=== PATIENT | female | born 1990 | race Caucasian/White ===

== ENCOUNTER 2021-12-28 17:34 | Emergency (ER) | payer SELFPAY ==
[2021-12-28] MEDS ORDERED: NA CHLORIDE 0.9% 1,000 ML ONE (20:56)
[2021-12-28] MEDS ORDERED: ACETAMINOPHEN 500 MG TAB ONE (20:56)
[2021-12-28 21:08] LABS: Urine Blood Trace-lysed (Negative); Urine Glucose Negative (Negative); Urine Protein Negative (Negative); Urine pH 6.5 (5.0-7.0)
[2021-12-28 21:10] LABS: Absolute Lymphocytes (CBC) 0.6 K/uL (0.7-4.9); Hematocrit 38.6 % (36.0-45.0); Lymphocytes % 7.7 % (15.3-44.8); MCV 89.5 fL (80-100); MPV 7.4 fL (7.6-11.3); RBC Red Blood Cell Count 4.31 M/uL (3.86-4.86)
[2021-12-28 21:20] LABS: Protime INR 1.21
[2021-12-28 21:38] LABS: ALT/SGPT 19 U/L (12-78); AST/SGOT 12 U/L (15-37); Albumin 3.7 g/dL (3.4-5.0); Alkaline Phosphatase 77 U/L (45-117); BUN Blood Urea Nitrogen 6 mg/dL (7-18); Bicarbonate 22 mmol/L (21-32); Bilirubin Direct 0.1 mg/dL (0-0.2); Bilirubin Total 0.4 mg/dL (0.2-1.0); Glomerular Filtration Rate 104 ml/min (=/>90); Glucose Level 100 mg/dL (74-106); Magnesium 2.2 mg/dL (1.8-2.4); NT PRO-BNP 278 pg/mL (<125); Potassium 3.8 mmol/L (3.5-5.1); Protein, Total 7.9 g/dL (6.4-8.2); Sodium Level 136 mmol/L (136-145)
[2021-12-28 21:46] LABS: Troponin High Sensitivity < 3.0 pg/mL (<58.9)
--- NOTE | 2021-12-28 21:52 | RAD REPORT ---
EXAM DESCRIPTION: RAD - Chest Single View - 12/28/2021 9:46 pm CLINICAL HISTORY: COUGH Chest pain. COMPARISON: CHEST SINGLE VIEW dated 10/28/2014; ABDOMEN 1 VIEW KUB dated 05/12/2008 FINDINGS: Portable technique limits examination quality. The lungs are grossly clear. The heart is normal in size. No displaced fractures. IMPRESSION: No acute intrathoracic process suspected.
--- NOTE | 2021-12-29 00:22 | ER ---
Nurse's Notes [facility] Name: Vita Edwards Age: 31 yrs Sex: Female : 1990 Arrival Date: 12/28/2021 Time: 17:37 Bed 11 Private MD: Diagnosis: SARS-associated coronavirus as the cause of diseases classified elsewhere Presentation: 12/28 17:55 Chief complaint: Headache, sinus congestion, cough, body aches, nausea, and chills upon hb waking today. Coronavirus screen: Client presents with at least one sign or symptom that may indicate coronavirus-19. Standard/surgical mask placed on the client. Provider contacted for isolation considerations. Ebola Screen: No symptoms or risks identified at this time. Risk Assessment: Do you want to hurt yourself or someone else? Patient reports no desire to harm self or others. Onset of symptoms was December 28, 2021. 17:55 Method Of Arrival: Ambulatory 17:55 Acuity: CHINTAN 4 hb 19:16 Initial Sepsis Screen: Does the patient meet any 2 criteria? No. Patient's initial hb sepsis screen is negative. Does the patient have a suspected source of infection? No. Patient's initial sepsis screen is negative. Triage Assessment: 17:56 Headache History: Denies prior headaches. General: Appears in no apparent distress. hb Behavior is calm, cooperative. Pain: Pain currently is 10 out of 10 on a pain scale. Neuro: Level of Consciousness is awake, alert, obeys commands, Oriented to person, place, time, situation. Cardiovascular: Patient's skin is warm and dry. Respiratory: Respiratory effort is even, unlabored, Respiratory pattern is regular, symmetrical. DATA TYPIST: 12/29 00:45 LMP N/A - bb Historical: - Allergies: 12/28 17:58 No Known Allergies; hb - Home Meds: 17:58 oral bc [Active]; hb - PMHx: 17:58 None; hb - PSHx: 17:58 None; hb - Immunization history:: Client reports having NOT received the Covid vaccine. - Social history:: Smoking status: Patient denies any tobacco usage or history of. Screenin:16 Abuse screen: Denies threats or abuse. Denies injuries from another. Nutritional hb screening: No deficits noted. Tuberculosis screening: No symptoms or risk factors identified. Fall Risk None identified. Assessment: 17:57 General: See triage assessment.. hb 19:15 Reassessment: Patient appears in no apparent distress at this time. Patient and/or hb family updated on plan of care and expected duration. Pain level reassessed. Patient is alert, oriented x 3, equal unlabored respirations, skin warm/dry/pink. 20:00 Reassessment: Patient appears in no apparent distress at this time. Patient and/or hb family updated on plan of care and expected duration. Pain level reassessed. Patient is alert, oriented x 3, equal unlabored respirations, skin warm/dry/pink. 21:30 Reassessment: Patient appears in no apparent distress at this time. Patient and/or hb family updated on plan of care and expected duration. Pain level reassessed. Patient is alert, oriented x 3, equal unlabored respirations, skin warm/dry/pink. 22:38 Reassessment: Patient appears in no apparent distress at this time. Patient and/or hb family updated on plan of care and expected duration. Pain level reassessed. Patient is alert, oriented x 3, equal unlabored respirations, skin warm/dry/pink. 23:32 Reassessment: Patient appears in no apparent distress at this time. Patient and/or hb family updated on plan of care and expected duration. Pain level reassessed. Patient is alert, oriented x 3, equal unlabored respirations, skin warm/dry/pink. 12/29 00:43 Reassessment: Patient is alert, oriented x 3, equal unlabored respirations, skin bb warm/dry/pink. pt verbalized understanding of and agrees to plan of care discharge instructions given pt ambulated with steady gait to exit. Vital Signs: 12/28 17:55 BP 128 / 80; Pulse 115; Resp 18; Temp 98.2; Pulse Ox 97% on R/A; Weight 108.86 kg; hb Height 6 ft. 1 in. (185.42 cm); Pain 10/10; 21:31 BP 126 / 82; Pulse 124; Resp 20; Pulse Ox 100% on R/A; hb 22:38 BP 124 / 79; Pulse 109; Resp 18; Pulse Ox 98% on R/A; hb 23:46 BP 98 / 57; Pulse 97; Resp 22; Temp 98(TE); Pulse Ox 99% on R/A; Pain 2/10; hb 12/29 00:44 BP 101 / 59; Pulse 98; Resp 20 S; Temp 98.6(O); Pulse Ox 100% on R/A; bb 12/28 17:55 Body Mass Index 31.66 (108.86 kg, 185.42 cm) hb ED Course: 12/28 17:37 Patient arrived in ED. as 17:58 Triage completed. hb 17:58 Arm band placed on. hb 19:12 Asif Piedra MD is Attending Physician. [facility] 19:15 Dee Nathan, RN is Primary Nurse. hb 19:16 Patient has correct armband on for positive identification. hb 20:24 Notified ED physician of a critical lab result(s). Covid positive Dr Piedra notified. bb 21:02 Inserted saline lock: 20 gauge in right wrist, using aseptic technique. Blood collected.hb 21:43 Notified ED physician of a critical lab result(s). D-Dimer 794 Dr Piedra notified. bb 21:48 XRAY Chest (1 view) In Process Unspecified. EDMS 22:26 CT Chest For PE Angio In Process Unspecified. EDAR 12/29 00:44 No provider procedures requiring assistance completed. IV discontinued, intact, bb bleeding controlled, No redness/swelling at site. Pressure dressing applied. Administered Medications: 12/28 21:02 Drug: Tylenol 1000 mg Route: PO; 12/29 00:45 Follow up: Response: No adverse reaction bb 12/28 21:03 Drug: NS 0.9% 1000 ml Route: IV; Rate: 1000 ml; Site: right wrist; Medication: 12/29 00:44 VIS not applicable for this client. bb Outcome: 00:21 Discharge ordered by . Main 00:44 Discharged to home ambulatory. bb 00:44 Condition: stable 00:44 Discharge instructions given to patient, Instructed on discharge instructions, follow up and referral plans. medication usage, Demonstrated understanding of instructions, follow-up care, medications, Prescriptions given X 4. 00:45 Patient left the ED. bb Signatures: Dispatcher [employer] EDAR Lorenza Alarcon Brenda, RN RN bb Dee Nathan, RN RN Asif Piedra MD MD [facility]
--- NOTE | 2021-12-29 00:22 | EDPHYS ---
Physician Documentation [facility] Name: Vita Edwards Age: 31 yrs Sex: Female : 1990 Arrival Date: 12/28/2021 Time: 17:37 Bed 11 Private MD: ED Physician Asif Piedra HPI: 12/28 20:30 This 31 yrs old Female presents to ER via Ambulatory with complaints of Headache, Sinus mh7 Pain. 20:30 The patient or guardian reports cough, that is intermittent, described as moderate, mh7 with no sputum, flu symptoms, myalgias, congestion. 20:30 Onset: The symptoms/episode began/occurred this morning. mh7 20:30 Severity of symptoms: At their worst the symptoms were moderate, earlier today, [facility] the symptoms have improved, moderately. Modifying factors: The symptoms are alleviated by nothing, the symptoms are aggravated by nothing. Associated signs and symptoms: Pertinent positives: chest pain, with cough, rhinorrhea, sore throat, sinus pain, Pertinent negatives: diarrhea, ear ache, fever, vomiting. [employer]ER: 12/29 00:45 LMP N/A - bb Historical: - Allergies: 12/28 17:58 No Known Allergies; hb - Home Meds: 17:58 oral bc [Active]; hb - PMHx: 17:58 None; hb - PSHx: 17:58 None; hb - Immunization history:: Client reports having NOT received the Covid vaccine. - Social history:: Smoking status: Patient denies any tobacco usage or history of. ROS: 20:30 Constitutional: Negative for fever, chills, and weight loss, Eyes: Negative for injury, mh7 pain, redness, and discharge, Neck: Negative for injury, pain, and swelling, Cardiovascular: Negative for chest pain, palpitations, and edema, Abdomen/GI: Negative for abdominal pain, nausea, vomiting, diarrhea, and constipation, Back: Negative for injury and pain, : Negative for injury, bleeding, discharge, and swelling, MS/Extremity: Negative for injury and deformity, Skin: Negative for injury, rash, and discoloration, Neuro: Negative for headache, weakness, numbness, tingling, and seizure, Psych: Negative for depression, anxiety, suicide ideation, homicidal ideation, and hallucinations, Allergy/Immunology: Negative for hives, rash, and allergies, Endocrine: Negative for neck swelling, polydipsia, polyuria, polyphagia, and marked weight changes, Hematologic/Lymphatic: Negative for swollen nodes, abnormal bleeding, and unusual bruising. Exam: 20:30 Constitutional: This is a well developed, well nourished patient who is awake, alert, mh7 and in no acute distress. 20:30 Eyes: Pupils equal round and reactive to light, extra-ocular motions intact. Lids and lashes normal. Conjunctiva and sclera are non-icteric and not injected. Cornea within normal limits. Periorbital areas with no swelling, redness, or edema. ENT: Nares patent. No nasal discharge, no septal abnormalities noted. Tympanic membranes are normal and external auditory canals are clear. Oropharynx with no redness, swelling, or masses, exudates, or evidence of obstruction, uvula midline. Mucous membranes moist. Neck: Trachea midline, no thyromegaly or masses palpated, and no cervical lymphadenopathy. Supple, full range of motion without nuchal rigidity, or vertebral point tenderness. No Meningismus. Chest/axilla: Normal chest wall appearance and motion. Nontender with no deformity. No lesions are appreciated. Cardiovascular: Regular rate and rhythm with a normal S1 and S2. No gallops, murmurs, or rubs. Normal PMI, no JVD. No pulse deficits. Respiratory: Lungs have equal breath sounds bilaterally, clear to auscultation and percussion. No rales, rhonchi or wheezes noted. No increased work of breathing, no retractions or nasal flaring. Abdomen/GI: Soft, non-tender, with normal bowel sounds. No distension or tympany. No guarding or rebound. No evidence of tenderness throughout. Back: No spinal tenderness. No costovertebral tenderness. Full range of motion. Skin: Warm, dry with normal turgor. Normal color with no rashes, no lesions, and no evidence of cellulitis. MS/ Extremity: Pulses equal, no cyanosis. Neurovascular intact. Full, normal range of motion. Neuro: Awake and alert, GCS 15, oriented to person, place, time, and situation. Cranial nerves II-XII grossly intact. Motor strength 5/5 in all extremities. Sensory grossly intact. Cerebellar exam normal. Normal gait. Psych: Awake, alert, with orientation to person, place and time. Behavior, mood, and affect are within normal limits. 20:30 Head/face: Sinus tenderness, that is mild, is located over the right maxillary sinus and left maxillary sinus. Vital Signs: 17:55 BP 128 / 80; Pulse 115; Resp 18; Temp 98.2; Pulse Ox 97% on R/A; Weight 108.86 kg; hb Height 6 ft. 1 in. (185.42 cm); Pain 10/10; 21:31 BP 126 / 82; Pulse 124; Resp 20; Pulse Ox 100% on R/A; hb 22:38 BP 124 / 79; Pulse 109; Resp 18; Pulse Ox 98% on R/A; hb 23:46 BP 98 / 57; Pulse 97; Resp 22; Temp 98(TE); Pulse Ox 99% on R/A; Pain 2/10; hb 12/29 00:44 BP 101 / 59; Pulse 98; Resp 20 S; Temp 98.6(O); Pulse Ox 100% on R/A; bb 12/28 17:55 Body Mass Index 31.66 (108.86 kg, 185.42 cm) hb MDM: 00:19 Differential Diagnosis: Obstructed Airway Bronchitis Influenza Upper Respiratory mh7 Infection Sinusitis Pharyngitis Asthma Exacerbation Viral Syndrome Pneumonia. Data reviewed: vital signs, nurses notes, lab test result(s), CBC, electrolytes, Flu: negative COVID positive. Data interpreted: Pulse oximetry: on room air is 99 %. Interpretation: normal. Counseling: I had a detailed discussion with the patient and/or guardian regarding: the historical points, exam findings, and any diagnostic results supporting the discharge/admit diagnosis, lab results, radiology results, the need for outpatient follow up, to return to the emergency department if symptoms worsen or persist or if there are any questions or concerns that arise at home. Response to treatment: the patient's symptoms have resolved after treatment, the patient's blood pressure is in an acceptable range, mental status has returned to baseline, the patient no longer shows bradycardia, the patient is not short of breath, the patient is not tachycardic, the patient's pain is gone, the patient's temperature has normalized. 00:21 Patient medically screened. mh7 12/28 18:05 Order name: Flu; Complete Time: 20:32 ss 12/28 18:05 Order name: COVID-19 SARS RT PCR (Document "Date of Onset" if Symptomatic); Complete ss Time: 20:32 12/28 20:43 Order name: Basic Metabolic Panel; Complete Time: 21:56 [facility] 12/28 20:43 Order name: CBC with Diff; Complete Time: 21:44 [facility] 12/28 20:43 Order name: D-Dimer; Complete Time: 21:56 [facility] 12/28 20:43 Order name: LFT's; Complete Time: 21:56 [facility] 12/28 20:43 Order name: Magnesium; Complete Time: 21:56 [facility] 12/28 20:43 Order name: NT PRO-BNP; Complete Time: 21:56 [facility] 12/28 20:43 Order name: PT-INR; Complete Time: 21:56 [facility] 12/28 20:43 Order name: Troponin HS; Complete Time: 21:56 [facility] 12/28 21:08 Order name: Urine Dipstick-Ancillary; Complete Time: 21:44 [facility] 12/28 21:22 Order name: Urine --Ancillary (enter results); Complete Time: 21:57 12/28 20:43 Order name: XRAY Chest (1 view); Complete Time: 21:56 [facility] 12/28 20:43 Order name: EKG; Complete Time: 20:43 [facility] 12/28 20:43 Order name: Cardiac monitoring; Complete Time: 21:31 [facility] 12/28 20:43 Order name: EKG - Nurse/Tech; Complete Time: 21:31 [facility] 12/28 20:43 Order name: IV Saline Lock; Complete Time: 21:08 [facility] 12/28 20:43 Order name: Labs collected and sent; Complete Time: 21:08 [facility] 12/28 20:43 Order name: O2 Per Protocol; Complete Time: 21:08 [facility] 12/28 20:43 Order name: O2 Sat Monitoring; Complete Time: 21:08 [facility] 12/28 20:43 Order name: Urine Dipstick-Ancillary (obtain specimen); Complete Time: 21:08 [facility] 12/28 20:43 Order name: Urine Test (obtain specimen); Complete Time: 21:08 [facility] 12/28 21:57 Order name: CT Chest For PE Angio 7 Administered Medications: 12/28 21:02 Drug: Tylenol 1000 mg Route: PO; hb 12/29 00:45 Follow up: Response: No adverse reaction 12/28 21:03 Drug: NS 0.9% 1000 ml Route: IV; Rate: 1000 ml; Site: right wrist; hb Disposition Summary: 12/29/21 00:21 Discharge Ordered Location[facility] Problem: [facility] Symptoms: have improved [facility] Condition: Stable [facility] Diagnosis - SARS-associated coronavirus as the cause of diseases classified elsewhere [facility] - With: Private Physician - When: 1 - 2 days - Reason: Worsening of condition, Recheck today's complaints, Continuance of care, Re-evaluation by your physician Discharge Instructions: - Discharge Summary Sheet - COVID-19 [facility] - Things to Know about the COVID-19 Pandemic - [place] [address] - 10 Things You Can Do to Manage Your COVID-19 Symptoms at Home - [place] [address] - COVID-19: Quarantine vs. Isolation - [place] [address] - Prevent the Spread of COVID-19 if You Are Sick - [place] [address] Forms: - Work release form - Medication Reconciliation Form [facility] - Thank You Letter [facility] - Antibiotic Education [facility] - Prescription Opioid Use [facility] Prescriptions: - aspirin 81 mg Oral tablet,delayed release (DR/EC) - take 1 tablet by ORAL route once daily; 30 tablet; Refills: 0, Product [facility] Selection Permitted - ondansetron 4 mg Oral tablet,disintegrating - place 1 tablet by TRANSLINGUAL route every 8 hours As needed; 10 tablet; [facility] Refills: 0, Product Selection Permitted - Tessalon Perles 100 mg Oral Capsule - take 1 capsule by ORAL route every 8 hours As needed; 15 capsule; Refills: 0, [facility] Product Selection Permitted - Zithromax Z-Jose 250 mg Oral Tablet - take 1 tablet by ORAL route as directed for 5 days Day 1 - take two (2) tablets [facility] one time. Day 2, 3, 4 , 5 take one (1) tablet once daily.; 6 tablet; Refills: 0, Product Selection Permitted Signatures: Dispatcher [employer] Dee Dumont RN RN Asif Piedra MD MD [facility] Lesly Bautista RN
[2021-12-29 01:18] VITALS: BP 101/59; TEMP 98.6; O2SAT 100
--- NOTE | 2021-12-29 12:41 | EKG ---
Test Date: 2021-12-28 Test Time: 21:18:50 Gauger Chief Delivery: HB MEASUREMENT RESULTS: Intervals: Rate: 0 [place]: QRSD: 0 QT: 0 QTc: 0 [place]: P: [place]: QRS: 0 T: 0 INTERPRETIVE STATEMENTS: No QRS complexes found, no ECG analysis possible No previous ECG available for comparison Electronically Signed On 12-29-21 12:39:38 CDT by Ovidio Lambert
--- NOTE | 2021-12-29 12:41 | EKG ---
Test Date: 2021-12-28 Test Time: 21:21:52 Construction Materials Tester: HB MEASUREMENT RESULTS: Intervals: Rate: 100 VA: 152 QRSD: 78 QT: 340 QTc: 438 [place]: P: 66 VA: 152 QRS: 55 T: 49 INTERPRETIVE STATEMENTS: Normal sinus rhythm Normal ECG Compared to ECG 12/28/2021 21:18:50 No significant changes Electronically Signed On 12-29-21 12:39:35 CDT by Ovidio Lambert
--- NOTE | 2021-12-29 15:13 | RAD REPORT ---
EXAM DESCRIPTION: CT - Chest For Pe Angio - 12/29/2021 6:41 am CLINICAL HISTORY: 31-year-old female with chest pain. COMPARISON: None. TECHNIQUE: CT angiography of the pulmonary arteries was performed following intravenous administrati on of contrast. Coronal and bilateral oblique maximum intensity projections (MIPS) were created. This exam was performed according to our departmental dose optimization program which includes use of aut omated exposure control, adjustment of the mA and/or kV according to patient size and/or use of itera tive reconstruction technique. FINDINGS: Chest: Evaluation through the lungs reveals no focal opacity, pleural effusion or pneumothorax. There is min imal dependent basilar atelectasis and scarring. The tracheobronchial airways are patent. No signific ant mediastinal or axillary lymphadenopathy by CT measurement criteria. Limited evaluation of the upper abdomen shows no acute intra-abdominal abnormalities. The osseous structures are within normal limits. CT angiography: Nondiagnostic pulmonary embolism examination secondary to transient interruption of c ontrast and nondiagnostic contrast through the pulmonary arteries. No large embolism is identified within the main, LEFT and RIGHT main pulmonary arteries. Distal subse gmental pulmonary embolism cannot be excluded secondary to nondiagnostic contrast opacification. IMPRESSION: 1. Nondiagnostic pulmonary embolism examination secondary to nondiagnostic contrast th rough the pulmonary arteries secondary to transient interruption of contrast. No large embolism is id entified within the main, LEFT and RIGHT main pulmonary arteries. Distal subsegmental pulmonary embol ism cannot be excluded secondary to nondiagnostic contrast opacification. 2. The lungs are clear without focal opacity, pleural effusion or pneumothorax. 3. No specific findings are noted to suggest etiology of the patient's chest pain and shortness of breath. Electronically signed by: Tiffany Kaur MD 12/28/2021 10:45 PM CDT Due to temporary technical issues with the PACS/Fluency reporting system, reports are being signed by the in house radiologists without review as a courtesy to insure prompt reporting. The interpreting radiologist is fully responsible for the content of the report.
== END 2021-12-29 00:45 | disposition home or self-care (01) ==
LOC: ER 17:34
DX: U07.1 COVID-19 (principal)
CPT/HCPCS: 36415; 71045; 71275; 80048; 80076; 81003; 81025; 83735; 83880; 84484; 85025; 85379; 85610; 87804; 93005; 99284; J7030; Q9967; U0003

== ENCOUNTER 2022-09-03 12:55 | Emergency (ER) | payer SELFPAY ==
--- OUTSIDE RECORDS SUMMARY | 2022-09-03 13:28 | XMS REPORT | Continuity of Care Document ---
:1990 [facility] t Address [address] [facility]. [address] [place] [address] Care Team Providers Name Role Phone Mariela Heriberto Tijerina Primary Care Physician NISHA CORTEZ Attending Clinician Unavailable NISHA CORTEZ Attending Clinician Unavailable Isis Armendariz MD Attending Clinician ISIS ARMENDARIZ Attending Clinician Unavailable Doctor Unassigned, [place] Attending Clinician Unavailable Payers Payer Name Policy Type Policy Number Effective Date Expiration Date S ource Problems Condition Condition Condition Status Onset Resolution Last Treating Co mments Source Name Details Category Date Date Treatment Clinician Date Mild Mild Disease Active 2021-06 Univers anxiety anxiety 0-07 ity of 00:00: [address] oral oral Disease Active 2021-06 Univers contrace contrace 0-07 ity of pill frieda pill frieda 00:00: [address] BMI BMI Disease Active 2021-06 Univers 32.0-32.9, 32.0-32.9, 0-07 it y of adult adult 00:00: [address] Breast Breast Disease Active Univers pain pain 3-08 ity of 00:00: [address] Allergies, Adverse Reactions, Alerts Allergy Allergy Status Severity Reaction(s) Onset Inactive Treating Comm ents Source Name Type Date Date Clinician NO KNOWN Drug Active Univers ALLERGIE Class ity of S [facility] Social History Social Habit Start Date Stop Date Quantity Comments Source History SDOH University o f Alcohol Std [place] [facility] History SDOH University o f Alcohol Binge [place] [facility] History SDOH University o f Alcohol Comment [place] [facility] Exposure to 2022-03-102022-03-20 Not sure [facility] SARS-CoV-2 00:00:00 09:07:00 [facility] (event) [place] Alcohol intake 2022-03-20 2022-03-20 Lifetime University of 00:00:00 00:00:00 non-drinker [facility] (finding) [place] Tobacco use and 2020-06-19 2020-06-19 Smokeless tobacco Un iversity of exposure 00:00:00 00:00:00 non-user [facility] History SDOH 2020-06-19 2020-06-19 1 University o f Alcohol Frequency 00:00:00 00:00:00 [facility] Sex Ass[birth year] At [birth year] Universit y of 00:00:00 00:00:00 [facility] Smoking Status Start Date Stop Date Source Unknown if ever smoked [facility] Never smoked tobacco [facility] Medications Ordered Filled Start Stop Current Ordering Indication Dosage Frequency Signature Comments Components Source Medication Medication Date Date Medication? Clinician (SIG) Name Name norgestimat 2021-06 Yes [id number] 1{tbl} Take 1 Univers e-ethinyl 0-07 tablet by ity o f estradio[place] 00 the Medical 0.25-35 morning. Branch mg-mcg per tablet buPROPion 2021-06 Yes [id number] 100mg Take 1 U nivers SR 0-07 tablet by ity of (WELLBUTRIN [place] 100 mg 00 the Medical SR tablet morning Branch and 1 tablet in the evening. norgestimat 2021-06 Yes [id number] 1{tbl} Take 1 Univers e-ethinyl 0-07 tablet by [place] the Medical 0.25-35 morning. Branch mg-mcg per tablet buPROPion 2021-06 Yes [id number] 100mg Take 1 U nivers SR 0-07 tablet by ity of (WELLBUTRIN [place] 100 mg 00 the Medical SR tablet morning Branch and 1 tablet in the evening. norgestimat 2021-06 Yes [id number] 1{tbl} Take 1 Univers e-ethinyl 0-07 tablet by it[place] o [place] the Medical 0.25-35 morning. Branch mg-mcg per tablet buPROPion 2021-06 Yes [id number] 100mg Take 1 U nivers SR 0-07 tablet by ity of (WELLBUTRIN [place] 100 mg 00 the Medical SR tablet morning Branch and 1 tablet in the evening. norgestimat 2020-06 Yes [id number] 1{tbl} Take 1 Univers e-ethinyl 0-21 tablet by ity o f estradioL 00:00: mouth [place] (FEMYNOR) 00 daily. Medical 0.25-35 Branch mg-mcg per tablet norgestimat 2020-06 Yes [id number] 1{tbl} Take 1 Univers e-ethinyl 0-21 tablet by ity o f estradioL 00:00: mouth [place] (FEMYNOR) 00 daily. Medical 0.25-35 Branch mg-mcg per tablet norgestimat 2020-06- No [id number] 1{tbl} Take 1 Univers e-ethinyl 0-21 10-07 tablet by ity of estradioL 00:00: 00:00 mouth [place] (FEMYNOR) 00 :00 daily. Medical 0.25-35 Branch mg-mcg per tablet norgestimat 2020-06- No [id number] 1{tbl} Take 1 Univers e-ethinyl 0-21 10-07 tablet by ity of estradioL 00:00: 00:00 mouth [place] (FEMYNOR) 00 :00 daily. Medical 0.25-35 Branch mg-mcg per tablet norgestimat 2020- No [id number] 1{tbl} Take 1 Univers e-ethinyl 4-11 10-21 tablet by ity of estradioL 00:00: 00:00 mouth [place] (FEMYNOR) 00 :00 daily. Medical 0.25-35 Branch mg-mcg per tablet erythromyci Yes [id number] Apply to Univers n 2 % gel 3-04 area(s) ity of 00:00: daily. [place] 00 Medical Branch erythromyci Yes [id number] Apply to Univers n 2 % gel 3-04 area(s) ity of 00:00: daily. [place] [facility] erythromyci Yes [id number] Apply to Univers n 2 % gel 3-04 area(s) ity of 00:00: daily. [place] [facility] erythromyci Yes [id number] Apply to Univers n 2 % gel 3-04 area(s) ity of 00:00: daily. [place] [facility] erythromyci Yes [id number] Apply to Univers n 2 % gel 3-04 area(s) ity of 00:00: daily. [address] Vital Signs Vital Name Observation Time Observation Value Comments Source Systolic blood 2022-03-20 14:17:00 132 mm[Hg] Univer sity of pressure [facility] Diastolic blood 2022-03-20 14:17:00 83 mm[Hg] Unive rsity [facility] Heart rate 2022-03-20 14:17:00 79 /min [facility] Respiratory rate 2022-03-20 14:17:00 18 /min [facility] Body height 2022-03-20 14:17:00 182.9 cm [facility] Body weight 2022-03-20 14:17:00 109.226 kg [facility] BMI 2022-03-20 14:17:00 32.66 kg/m2 [facility] Oxygen saturation in 2022-03-20 14:17:00 97 /min [facility] Arterial blood by [facility] Pulse oximetry Branch Procedures Procedure Date / Time Performed Performing Clinician [facility] e ASSIGNMENT OF BENEFITS 2020-06-19 20:47:34 Doctor Unassigned, No [facility] Name [facility] Encounters Start End Encounter Admission Attending Care Care Encounter Source Date/Time Date/Time Type Type Clinicians Facility Department ID 2022-06-22 2022-06-22 Outpatient R NISHA CORTEZ [facility] B [id number] Univers 15:30:00 15:30:[address] [facility] 2022-04-11 2022-04-11 RefGWEN Lozano [id number] Univers 00:00:00 00:00:00 Nisha SÁNCHEZ [id number] it y of W[place]'S [id number] [place] [facility] [id number] [address] 2022-03-20 2022-03-20 Outpatient R NISHA CORTEZ [facility] B [id number] Univers 09:30:00 09:36:34 WAYNENISHA VU [facility] 2022-03-20 2022-03-20 Office Silvana [facility] [id number] Univers 09:30:00 09:36:34 Visit Nisha SÁNCHEZ [id number] it y of WOMEN'S [id number] [place] [facility] [id number] [address] 2022-03-17 2022-03-17 Outpatient R NISHA CORTEZ [facility] B [id number] Univers 13:00:00 13:00:00 WAYNENISHA VU [facility] 2022-03-10 2022-03-10 Refill Isis Armendariz [facility] [id number] Univers 00:00:00 00:00:00 LIBRADO [id number] it y of [place] [id number] [place] [facility] [id number] [address] 2021-06-19 2021-06-19 Outpatient R FCO ARMENDARIZN [facility] [id number] Univers 14:00:00 14:00:[address] [facility] 2021-04-03 2021-04-03 Telephone Isis Armendariz [facility] [id number] Univers 00:00:00 00:00:00 Librado [id number] it y [id number] [place] [id number] [address] 2020-08-26 2020-08-26 Outpatient R ISIS ARMENDARIZ [facility] [id number] Univers 15:15:00 15:15:[address] [facility] 2020-08-15 2020-08-15 Outpatient R ISIS ARMENDARIZ [facility] [id number] Univers 11:00:00 11:00:[address] [facility] 2020-06-19 2020-06-19 Outpatient R [facility] [id number] Univers 15:00:00 15:00:[address] [facility] 2020-06-19 2020-06-19 Orders Doctor ZOIE [id number] Univers 00:00:00 00:00:00 Only Unassigned, LUCRECIA [id number] ity of [place] [facility] [id number] No[place] as [phone] [place] [address] Branch Results This patient has no known results.
--- NOTE | 2022-09-03 13:52 | RAD REPORT ---
EXAM DESCRIPTION: RAD - Chest Single View - 09/03/2022 1:41 pm CLINICAL HISTORY: COUGH COMPARISON: Chest Single View dated 12/28/2021; CHEST SINGLE VIEW dated 10/28/2014; ABDOMEN 1 VIEW KUB dated 05/12/2008 FINDINGS: Lines: None. Lungs: No evidence of edema or pneumonia. Pleural: No significant pleural effusions or pneumothorax. Cardiac: The heart size is within normal limits. Mediastinum: Within normal limits. Bones: No acute fractures. Other: None IMPRESSION: No acute cardiopulmonary disease.
--- NOTE | 2022-09-03 14:00 | EDPHYS ---
Physician Documentation [facility] Name: Vita Edwards Age: 31 yrs Sex: Female : 1990 Arrival Date: 09/03/2022 Time: 13:00 Bed IW1 Private MD: ED Physician Wilton Hercules HPI: 09/03 13:10 This 31 yrs old Female presents to ER via Ambulatory with complaints of Cough, Nose jh7 Bleed. 13:10 The patient or guardian reports cough, described as moderate. Onset: The jh7 symptoms/episode began/occurred 3 week(s) ago. Associated signs and symptoms: Pertinent positives: rhinorrhea, 2 nosebleeds, Pertinent negatives: chest pain, fever, sore throat. 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 - Social history:: Smoking status: Patient denies any tobacco usage or history of. ROS: 13:10 Constitutional: Negative for fever, chills, and weight loss, Eyes: Negative for injury, jh7 pain, redness, and discharge, Neck: Negative for injury, pain, and swelling, Cardiovascular: Negative for chest pain, palpitations, and edema, Respiratory: Negative for shortness of breath, cough, wheezing, and pleuritic chest pain, Back: Negative for injury and pain, Skin: Negative for injury, rash, and discoloration, Neuro: Negative for headache, weakness, numbness, tingling, and seizure. 13:10 ENT: Positive for nasal discharge. 13:10 Respiratory: Positive for cough, Negative for shortness of breath, wheezing. 13:10 All other systems are negative. Exam: 13:10 Constitutional: This is a well developed, well nourished patient who is awake, alert, jh7 and in no acute distress. Head/Face: Normocephalic, atraumatic. Eyes: Pupils equal round and reactive to light, extra-ocular motions intact. Lids and lashes normal. Conjunctiva and sclera are non-icteric and not injected. Cornea within normal limits. Periorbital areas with no swelling, redness, or edema. Cardiovascular: Regular rate and rhythm with a normal S1 and S2. No gallops, murmurs, or rubs. Normal PMI, no JVD. No pulse deficits. Respiratory: Lungs have equal breath sounds bilaterally, clear to auscultation and percussion. No rales, rhonchi or wheezes noted. No increased work of breathing, no retractions or nasal flaring. Skin: Warm, dry with normal turgor. Normal color with no rashes, no lesions, and no evidence of cellulitis. MS/ Extremity: Pulses equal, no cyanosis. Neurovascular intact. Full, normal range of motion. Neuro: Awake and alert, GCS 15, oriented to person, place, time, and situation. Normal gait. 13:10 ENT: Nose: nasal drainage, and is seen coming from both nares, that is clear, Posterior pharynx: post nasal drainage. Vital Signs: 13:14 BP 138 / 93; Pulse 81; Resp 14; Temp 98.3; Pulse Ox 100% on R/A; Weight 108.86 kg; ss Height 6 ft. 1 in. ; Pain 0/10; 13:14 Body Mass Index 31.66 (108.86 kg, 185.42 cm) ss 13:14 Pain Scale: Adult ss MDM: 13:05 Patient medically screened. [facility] 14:00 Differential Diagnosis: Bronchitis Upper Respiratory Infection Sinusitis Allergic jh7 Rhinitis Viral Syndrome. Data reviewed: vital signs, nurses notes, radiologic studies, plain films. Counseling: I had a detailed discussion with the patient and/or guardian regarding: the historical points, exam findings, and any diagnostic results supporting the discharge/admit diagnosis, to return to the emergency department if symptoms worsen or persist or if there are any questions or concerns that arise at home. 09/03 13:23 Order name: XRAY Chest (1 view); Complete Time: 13:59 [facility] Administered Medications: No medications were administered Disposition: 15:27 I reviewed the patient's care provided by the Advanced Practice Provider and agree with delia the diagnosis and treatment plan. Disposition Summary: 09/03/22 13:59 Discharge Ordered Location: Home [facility] Problem: new [facility] Symptoms: are unchanged [facility] Condition: Stable [facility] Diagnosis - Acute bronchitis, unspecified jh7 Followup: jh7 - With: Private Physician - When: 2 - 3 days - Reason: Recheck today's complaints Discharge Instructions: - Discharge Summary Sheet [facility] - Acute Bronchitis, Adult [facility] Forms: - Work release form aa5 - Medication Reconciliation Form [facility] - Thank You Letter [facility] Prescriptions: - ProAir RespiClick 90 mcg/actuation Inhalation Aerosol Powder, Breath Activated - administer 2 inhalation by INHALATION route every 6 hours As needed as needed [facility] for shortness of breath or wheezing; 1 Each; Refills: 0, Product Selection Permitted - Tessalon Perles 100 mg Oral Capsule - take 1 capsule by ORAL route every 8 hours As needed; 15 capsule; Refills: 0, [facility] Product Selection Permitted - Medrol (Jose) 4 mg Oral Tablets, Dose Pack - take 1 tablet by ORAL route as directed - follow package instructions; [address] [facility] packet; Refills: 0, Product Selection Permitted Signatures: Dispatcher [employer] Vanna Ramirez RN RN ss Rosillo, Jose, MD MD [id number] Sydni Gracia FNP [place] [id number]
--- NOTE | 2022-09-03 14:00 | ER ---
Nurse's Notes [facility] Name: Vita Edwards Age: 31 yrs Sex: Female : 1990 Arrival Date: 09/03/2022 Time: 13:00 Bed IW1 Private MD: Diagnosis: Acute bronchitis, unspecified Presentation: 09/03 13:14 Chief complaint: Patient states: cough x 3 weeks, nose bleeds x 2 yesterday. Denies ss fever. Coronavirus screen: Client denies travel out of the [place] in the last 14 days. Client presents with at least one sign or symptom that may indicate coronavirus-19. Ebola Screen: Patient denies exposure to infectious person. Patient denies travel to an Ebola-affected area in the 21 days before illness onset. Initial Sepsis Screen: Does the patient meet any 2 criteria? No. Patient's initial sepsis screen is negative. Does the patient have a suspected source of infection? No. Patient's initial sepsis screen is negative. Risk Assessment: Do you want to hurt yourself or someone else? Patient reports no desire to harm self or others. Onset of symptoms was August 13, 2022. 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 - Social history:: Smoking status: Patient denies any tobacco usage or history of. Assessment: 14:14 Reassessment: Patient is alert, oriented x 3, equal unlabored respirations, skin aa5 warm/dry/pink. Vital Signs: 13:14 BP 138 / 93; Pulse 81; Resp 14; Temp 98.3; Pulse Ox 100% on R/A; Weight 108.86 kg; ss Height 6 ft. 1 in. ; Pain 0/10; 13:14 Body Mass Index 31.66 (108.86 kg, 185.42 cm) 13:14 Pain Scale: Adult ED Course: 13:00 Patient arrived in ED. mr 13:05 [facility] 13:05 Wilton Hercules MD is Attending Physician. jh7 13:15 Triage completed. ss 13:15 Arm band placed on right wrist. ss 13:43 XRAY Chest (1 view) In Process Unspecified. EDMS 14:14 No provider procedures requiring assistance completed. Patient did not have IV access aa5 during this emergency room visit. Administered Medications: No medications were administered Medication: 14:14 VIS not applicable for this client. aa5 Outcome: 13:59 Discharge ordered by . jh7 14:14 Discharged to home ambulatory. aa5 14:14 Condition: stable 14:14 Discharge instructions given to patient, Instructed on discharge instructions, follow up and referral plans. medication usage, Demonstrated understanding of instructions, follow-up care, medications, Prescriptions given X 3. 14:14 Patient left the ED. aa5 Signatures: Dispatcher [employer] EDWV [employer] GustavoEdelmira RN RN aa5 Vanna Crabtree RN RN Sydni Gracia FNP FNP [facility]
[2022-09-03 16:56] VITALS: BP 138/93; TEMP 98.3; O2SAT 100
== END 2022-09-03 14:14 | disposition home or self-care (01) ==
LOC: ER 12:55
DX: J20.9 Acute bronchitis, unspecified (principal)
CPT/HCPCS: 71045; 99283

== ENCOUNTER 2024-03-28 22:04 | Emergency (ER) | payer SELFPAY ==
--- OUTSIDE RECORDS SUMMARY | 2024-03-28 22:07 | XMS REPORT | Continuity of Care Document ---
Author Name Unknown Address [address] [facility] [address] [place] [address] [facility] thconnect Address [address] [facility] 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 Name Role Phone REESE MUJICA Primary Care Physician Unav ailable NELLI MCLAIN Attending Clinician Unavailable Doctor Unassigned, [place] Attending Clinician U mona Muller MD, Kelsy Lovelace Attending Clinician [phone] SANDY Attending Clinician Unavailable Nisha Cortez NP Attending Clinician [phone] NISHA CORTEZ Attending Clinician Unavailrio RUEDA Attending Clinician Unavailable Isis Jonas MD Attending Clinician [phone] ISIS JONAS Attending Clinician Unavailable JENAE_Sunny Admitting Clinician Unavailable JIM_Abbey Admitting Clinician Unavailable Payers Payer Name Policy Type Policy Number Effective Date Expirati on Date Source Problems Condition Name Condition Details Condition Category Status Onset Date Resolution Date Last Treatment Date Treating Clinician Comments Source Obesity (BMI 30-39.9) Obesity (BMI 30-39.9) Disease Active 10-21 00:00: 00 [facility] Scoliosis deformity of spine Scoliosis Deformity of Spine Problem Active 11-26 00:00: 00 [facility] Malaise and fatigue Malaise and Fatigue Problem Active 6 00:00: 00 [facility] Mild anxiety Mild Anxiety Problem Active 2021-06 007 00:00: 00 [facility] History of SARS-CoV-2 History of SARS-CoV-2 Problem Active 7- 00:00: 00 [facility] Oral contracept chantel pill surveillan ce Oral contracept chantel pill surveillan ce Disease Resolve d 6-15 00:00: 00 2023-10-22 00:00:00 2023-10-22 12:14:55 [facility] oral contrace pill frieda oral contrace pill frieda Disease Resolve d 2021-06 0 00:00: 00 2023-10-22 00:00:00 2023-10-22 12:14:50 [facility] BMI 32.0-32.9, adult BMI 32.0-32.9, adult Disease Resolve d 2021-06 0 00:00: 00 2023-10-22 00:00:00 2023-10-22 12:14:53 [facility] Breast pain Breast pain Disease Resolve d 3-08 00:00: 00 2023-10-22 00:00:00 2023-10-22 12:14:58 [facility] Allergies, Adverse Reactions, Alerts Allergy Name Allergy Type Status Severity Reaction(s) Onset Date Inactive Date Treating Clinician Comments Source NO KNOWN ALLERGIE S Drug Class Active [facility] Social History Social Habit Start Date Stop Date Quantity Comments Source Gender identity [facility] SDOH [facility] Drinks [facility] History SDOH Alcohol Binge [facility] History SDOH Alcohol Comment [facility] History of Social function 2023-10-22 00:00:00 2023-10-22 00:00:00 [facility] Alcoholic beverage intake 2023-10-22 00:00:00 2023-10-22 00:00:00 Lifetime non-drinker (finding) [facility] Tobacco use and exposure 2022-11-26 00:00:00 2022-11-26 00:00:00 Smokeless tobacco non-user [facility] Alcohol intake 2022-11-26 00:00:00 2022-11-26 00:00:00 Lifetime non-drinker (finding) [facility] Exposure to SARS-CoV-2 (event) 2022-03-10 00:00:00 2022-03-20 09:07:[address] [facility] History SDOH Alcohol Frequency 2020-06-19 00:00:00 2020-06-19 00:00:[address] [facility] Sex assigned at 1990 00:00:00 1990 00:00:00 [facility] Smoking Status Start Date Stop Date Source Unknown if ever smoked [facility] Never smoked tobacco [facility] Medications Ordered Medication Name Filled Medication Name Start Date Stop Date Current Medication? Ordering Clinician Indication Dosage Frequency Signature (SIG) Comments Components Source norgestimat e-ethinyl estradioL (FEMYNOR) 0.25-35 mg-mcg per tablet 5-10 00:00: 00 Yes [id number] 1{tbl} Take 1 tablet by mouth in the morning. [facility] busPIRone 10 mg tablet 7-10 00:00: 00 Yes [id number] TAKE 1 TABLET BY MOUTH IN THE MORNING AND IN THE EVENING [facility] busPIRone 10 mg tablet 6-15 00:00: 00 12-21 00:00 :00 No [id number] 10mg Take 1 tablet by mouth in the morning and 1 tablet in the evening. [facility] norgestimat e-ethinyl estradioL (FEMYNOR) 0.25-35 mg-mcg per tablet 2021-06 0- 00:00: 00 10-21 00:00 :00 No [id number] 1{tbl} Take 1 tablet by mouth in the morning. [facility] buPROPion SR (WELLBUTRIN SR) 100 mg SR tablet 2021-06 0-07 00:00: 00 11-26 00:00 :00 No [id number] 100mg Take 1 tablet by mouth in the morning and 1 tablet in the evening. [facility] norgestimat e-ethinyl estradioL (FEMYNOR) 0.25-35 mg-mcg per tablet 2020-06 0 00:00: 00 03-20 00:00 :00 No [id number] 1{tbl} Take 1 tablet by mouth daily. [facility] norgestimat e-ethinyl estradioL (FEMYNOR) 0.25-35 mg-mcg per tablet 4-11 00:00: 00 04-03 00:00 :00 No [id number] 1{tbl} Take 1 tablet by mouth daily. [facility] erythromyci n 2 % gel 3-04 00:00: 00 Yes [id number] Apply to area(s) daily. [facility] Estarylla 0.25 mg-35 mcg tablet TAKE 1 TABLET BY MOUTH DAILY Estarylla 0.25 mg-35 mcg tablet TAKE 1 TABLET BY MOUTH DAILY No Estarylla 0.25 mg-35 mcg tablet TAKE 1 TABLET BY MOUTH DAILY [facility] ProAir RespiClick 90 mcg/actuati on breath activated INHALE 2 PUFFS EVERY 6 HOURS NEEEDED ProAir RespiClick 90 mcg/actuati on breath activated INHALE 2 PUFFS EVERY 6 HOURS NEEEDED No ProAir RespiClick 90 mcg/actuat ion breath activated INHALE 2 PUFFS EVERY 6 HOURS NEEEDED [facility] Wellbutrin XL 150 mg 24 hr tablet, extended release Take 1 tablet every day by oral route for 50 days. Wellbutrin XL 150 mg 24 hr tablet, extended release Take 1 tablet every day by oral route for 50 days. No 1 Q1D Wellbutrin XL 150 mg 24 hr tablet, extended release Take 1 tablet every day by oral route for 50 days. [facility] bupropion HCl XL 150 mg 24 hr tablet, extended release TAKE 1 TABLET EVERY DAY BY ORAL ROUTE FOR 50 DAYS bupropion HCl XL 150 mg 24 hr tablet, extended release TAKE 1 TABLET EVERY DAY BY ORAL ROUTE FOR 50 DAYS No bupropion HCl XL 150 mg 24 hr tablet, extended release TAKE 1 TABLET EVERY DAY BY ORAL ROUTE FOR 50 DAYS [facility] hydroxyzine HCl 25 mg tablet TAKE 2 TABLETS BY MOUTH AT BEDTIME hydroxyzine HCl 25 mg tablet TAKE 2 TABLETS BY MOUTH AT BEDTIME No hydroxyzin e HCl 25 mg tablet TAKE 2 TABLETS BY MOUTH AT BEDTIME [facility] ProAir RespiClick 90 mcg/actuati on breath activated INHALE 2 PUFFS EVERY 6 HOURS NEEEDED ProAir RespiClick 90 mcg/actuati on breath activated INHALE 2 PUFFS EVERY 6 HOURS NEEEDED No ProAir RespiClick 90 mcg/actuat ion breath activated INHALE 2 PUFFS EVERY 6 HOURS NEEEDED [facility] Wellbutrin XL 300 mg 24 hr tablet, extended release Take 1 tablet every day by oral route for 60 days. Wellbutrin XL 300 mg 24 hr tablet, extended release Take 1 tablet every day by oral route for 60 days. No 1 Q1D Wellbutrin XL 300 mg 24 hr tablet, extended release Take 1 tablet every day by oral route for 60 days. [facility] Vital Signs Vital Name Observation Time Observation Value Comments S ource Systolic blood pressure 2023-10-22 16:17:00 125 mm[Hg] [facility] Diastolic blood pressure 2023-10-22 16:17:00 75 mm[Hg] [facility] Heart rate 2023-10-22 16:17:00 65 /min [facility] Body temperature 2023-10-22 16:17:[address] [facility] Respiratory rate 2023-10-22 16:17:00 18 /min [facility] Body height 2023-10-22 16:17:00 185.4 cm [facility] Body weight 2023-10-22 16:17:00 115.214 kg [facility] BMI 2023-10-22 16:17:00 33.51 kg/m2 [facility] BP Diastolic 2023-01-07 00:00:00 70 mm[Hg] [facility] Height 2023-01-07 00:00:00 73 [in_i] [facility] BMI (Body Mass Index) 2023-01-07 00:00:00 32.1 kg/m2 [facility] BP Systolic 2023-01-07 00:00:00 126 mm[Hg] [facility] Body Weight 2023-01-07 00:00:00 3888 [oz_av] [facility] Systolic blood pressure 2022-11-26 13:43:00 117 mm[Hg] [facility] Diastolic blood pressure 2022-11-26 13:43:00 80 mm[Hg] [facility] Heart rate 2022-11-26 13:43:00 77 /min [facility] Respiratory rate 2022-11-26 13:43:00 18 /min [facility] Body height 2022-11-26 13:43:00 185.4 cm [facility] Body weight 2022-11-26 13:43:00 110.224 kg [facility] BMI 2022-11-26 13:43:00 32.06 kg/m2 [facility] BP Diastolic 2022-11-26 00:00:00 74 mm[Hg] [facility] Height 2022-11-26 00:00:00 73 [in_i] [facility] BMI (Body Mass Index) 2022-11-26 00:00:00 31.5 kg/m2 [facility] BP Systolic 2022-11-26 00:00:00 130 mm[Hg] [facility] Body Weight 2022-11-26 00:00:00 3824 [oz_av] [facility] Systolic blood pressure 2022-03-20 14:17:00 132 mm[Hg] [facility] Diastolic blood pressure 2022-03-20 14:17:00 83 mm[Hg] [facility] Heart rate 2022-03-20 14:17:00 79 /min [facility] Respiratory rate 2022-03-20 14:17:00 18 /min [facility] Body height 2022-03-20 14:17:00 182.9 cm [facility] Body weight 2022-03-20 14:17:00 109.226 kg [facility] BMI 2022-03-20 14:17:00 32.66 kg/m2 [facility] Oxygen saturation in Arterial blood by Pulse oximetry 2022-03-20 14:17:00 97 /min [place] [facility] Procedures Procedure Date / Time Performed Performing Clinicia n Source ASSIGNMENT OF BENEFITS 2022-11-26 13:29:52 Docto r Unassigned, [place] [facility] ASSIGNMENT OF BENEFITS 2020-06-19 20:47:34 Docto r Unassigned, [place] [facility] Plan of Care Planned Activity Planned Date Details Comments Source Future Scheduled Test Improved m ood, reduced anxiety. [code = Improved mood, reduced anxiety.] [facility] Instructions [facility] Encounters Start Date/Time End Date/Time Encounter Type Admission Type Attending Clinicians Care Facility Care Department Encounter ID Source 2024-01-13 00:00:00 2024-01-13 09:08:58 Telephone Nelli Mclain [place] [id number] 350.1.13.10 4.2.7.2.686 [id number] [facility] 2023-10-29 00:00:00 2023-11-23 14:44:01 Patient Secure Msg Doctor Unassigned, [place] [facility] 1.2.840.114 350.1.13.10 4.2.7.2.686 [id number] [facility] 2023-10-28 00:00:00 2023-10-28 12:55:54 Telephone Nelli Mclain [facility] 1.2.840.114 350.1.13.10 4.2.7.2.686 [id number] [facility] 2023-10-22 10:30:00 2023-10-22 11:51:24 Outpatient R NELLI MCLAIN [facility] [id number] [facility] 2023-10-22 10:30:00 2023-10-22 11:51:24 Office Visit Nelli Mclain [facility] 1.2.840.114 350.1.13.10 4.2.7.2.686 [id number] [facility] 2023-10-06 00:00:00 2023-10-06 00:00:00 Telephone Kelsy Muller [facility] 1..840.114 350.1.13.10 4.2.7.2.686 [id number] [facility] 2023-04-06 00:00:00 2023-04-06 00:00:00 Outpatient [facility] [id number] 2023-04-05 00:00:00 2023-04-05 00:00:00 Outpatient [facility] [id number] [facility] 2023-03-23 00:00:00 2023-03-23 00:00:00 Outpatient [facility] [id number] [facility] 2023-03-22 00:00:00 2023-03-22 00:00:00 Outpatient [facility] [id number] [facility] 2023-02-25 00:00:00 2023-02-25 00:00:00 Outpatient [facility] [id number] [facility] 2023-02-16 00:00:00 2023-02-16 00:00:00 Patient Secure Msg Doctor Unassigned, [place] [facility] 1..840.114 350.1.13.10 4.2.7.2.686 [id number] [facility] 2023-02-15 00:00:00 2023-02-15 00:00:00 Nisha Montero [facility] 1.2.840.114 350.1.13.10 4.2.7.2.686 [id number] [facility] 2023-02-11 00:00:00 2023-02-11 00:00:00 Outpatient [facility] [id number] [facility] 2023-02-10 00:00:00 2023-02-10 00:00:00 Outpatient [facility] [id number] [facility] 2023-02-01 00:00:00 2023-02-01 00:00:00 Outpatient [facility] [id number] [facility] 2023-01-28 00:00:00 2023-01-28 00:00:00 Outpatient [facility] [id number] [facility] 2023-01-27 00:00:00 2023-01-27 00:00:00 Outpatient [facility] [id number] [facility] 2023-01-16 00:00:00 2023-01-16 00:00:00 Outpatient [facility] [id number] [facility] 2023-01-15 00:00:00 2023-01-15 00:00:00 Outpatient [facility] [id number] [facility] 2023-01-07 00:00:00 2023-01-07 00:00:00 Outpatient [facility] [id number] [facility] 2023-01-07 00:00:00 2023-01-07 00:00:00 SUPA Queen: [address], [place] [address] , Ph[address] [facility] - [facility] - [facility], [address] KAUFMAN [id number] [facility] 2023-01-05 00:00:00 2023-01-05 00:00:00 Outpatient [facility] [id number] [facility] 2022-12-19 00:00:00 2022-12-19 00:00:00 Refill Nisha Cortez [facility] 1.2.840.114 350.1.13.10 4.2.7.2.686 [id number] [facility] 2022-12-01 00:00:00 2022-12-01 00:00:00 Outpatient [facility] [id number] [facility] 2022-11-26 08:30:00 2022-11-26 09:02:59 Office Visit Silvana [facility] 1.2.840.114 350.1.13.10 4.2.7.2.686 [id number] [facility] 2022-11-26 08:30:00 2022-11-26 09:02:59 Outpatient R NISHA CORTEZ CHERYAL [facility] [id number] [facility] 2022-11-26 00:00:00 2022-11-26 00:00:00 Outpatient [facility] [id number] [facility] 2022-11-26 00:00:00 2022-11-26 00:00:00 Outpatient [facility] 2022-11-26 00:00:00 2022-11-26 00:00:00 Patient Secure Msg Tritschler, Cheryal [facility] 1.840.114 350.1.13.10 4.2.7.2.686 [id number] [facility] 2022-11-26 00:00:00 2022-11-26 00:00:00 Orders Only Doctor Unassigned, [place] [facility] 1.84.114 350.1.13.10 4.2.7.2.686 [id number] [facility] 2022-11-26 00:00:00 2022-11-26 00:00:00 Vivian Dobson, WINDOWS SERVER SPECIALIST-C: [address], [place] [address] , Ph. [phone] [facility], [address] KAUFMAN [id number] [facility] 2022-11-17 00:00:00 2022-11-17 00:00:00 Outpatient SISSON[facility]C [facility] [id number] [facility] 2022-11-17 00:00:00 2022-11-17 00:00:00 Outpatient [facility] [id number] [facility] 2022-06-22 15:30:00 2022-06-22 15:30:00 Outpatient R NISHA CORTEZ [facility] [id number] [facility] 2022-04-11 00:00:00 2022-04-11 00:00:00 Nisha Montero [facility] 1.840.114 350.1.13.10 4.2.7.2.686 [id number] [facility] 2022-03-20 09:30:00 2022-03-20 09:36:34 Outpatient R NISHA CORTEZ [facility] [id number] [facility] 2022-03-20 09:30:00 2022-03-20 09:36:34 Office Visit Nisha Cortez [facility] 1.2.840.114 350.1.13.10 4.2.7.2.686 [id number] [facility] 2022-03-17 13:00:00 2022-03-17 13:00:00 Outpatient R NISHA CORTEZ [facility] [id number] [facility] 2022-03-10 00:00:00 2022-03-10 00:00:00 Refill Pritesh Isis [facility] 1..840.114 350.1.13.10 4.2.7.2.686 [id number] [facility] 2021-06-19 14:00:00 2021-06-19 14:00:00 Outpatient R ISIS JONAS [facility] [id number] [facility] 2021-04-03 00:00:00 2021-04-03 00:00:00 Telephone Isis Jonas [facility] 1..840.114 350.1.13.10 4.2.7.2.686 [id number] [facility] 2020-08-26 15:15:00 2020-08-26 15:15:00 Outpatient ISIS DILLON [facility] [id number] [facility] 2020-08-15 11:00:00 2020-08-15 11:00:00 Outpatient ISIS DILLON [facility] [id number] [facility] 2020-06-19 15:00:00 2020-06-19 15:00:00 Outpatient R [facility] [id number] [facility] 2020-06-19 00:00:00 2020-06-19 00:00:00 Orders Only Doctor Unassigned, [place] [facility] 1.2.840.114 350.1.13.10 4.2.7.2.686 [id number] [facility] Notes Date/Time Note Provider Source 2024-01-13 09:06:30 Received fax from [facility]. They need pt's mailing address and insurance info. Address given and self pay. Faxed back. BECKY WONG RN 01/13/2024 9:08 AM Becky Wong RN [facility] 2023-11-23 14:43:30 Name and verified. Pt advised of results and plan of care as stated below per provider. Pt verbalized understanding. BECKY WONG RN 11/23/2023 2:43 PM Becky Wong RN [facility] 2023-10-29 13:35:49 Per Brendon, K- HPV and STD negative. Notify pt. LM on for pt to return call regarding results and plan of care. [employer] message sent. BECKY WONG RN 10/29/2023 1:37 PM Becky Wong RN [facility] 2023-10-28 12:55:07 Received [facility] results via fax. Placed on provider's desk for review. BECKY WONG RN 10/28/2023 12:55 PM Becky Wong RN [facility] 2023-10-08 08:31:50 Attempted to contact patient by phone, number not in service, [employer] message sent. Sharon Haas RN 10/08/2023 8:31 AM Sharon Haas RN [facility] 2023-10-06 16:30:23 Attempted to contact patient by phone, number not in service. Sharon Haas RN 10/06/2023 4:30 PM [facility] 2023-10-06 12:39:50 Pt calling for refill on control she is scheduled for her wwe. Tika Treviño [facility] 2023-02-19 11:33:34 Formatting of this n ote might be different from the original. Refill request denied, pt will need an appt for a wwe, last wwe was on 06/19/2020. The office has attempted to contact pt by phone as well as by [employer]. [facility] 2023-02-16 09:26:03 Formatting of this n ote might be different from the original. Attempted to contact pt to let her know she is due for an appt prior to refill of ocp. Number was disconnected. Unable to leave a voicemail. Will send [employer] message. Chery Heller MA [facility]
[2024-03-28] MEDS ORDERED: KETOROLAC 30 MG/ML INJ ONE (23:01)
[2024-03-28] MEDS ORDERED: dexAMETHasone 10 MG/ML VIAL ONE (23:01)
[2024-03-28] MEDS ORDERED: HYDROCODONE/APAP 5/325 MG TAB ONE (23:01)
[2024-03-28] MEDS ORDERED: DIAZEPAM 5 MG TABLET ONE (23:02)
--- NOTE | 2024-03-28 23:21 | EDPHYS ---
Physician Documentation [facility] Name: Vita Edwards Age: 33 yrs Sex: Female : 1990 Arrival Date: 03/28/2024 Time: 22:04 Bed 14 Private MD: ED Physician Carlton García HPI: 03/28 23:18 This 33 yrs old Female presents to ER via Wheelchair with complaints of Back Pain. kb 23:18 Pt is a 33 year old female who presents for low back pain that started 4-5 days ago. kb States the chiropractor normally helps when she has this pain but this time it hasn't. Denies urinary symptoms, numbness/tingling. . [employer] CHIEF: 22:31 LMP 03/15/2024, unknown vc1 Historical: - Allergies: 22:28 No Known Allergies; vc1 - Home Meds: 22:28 oral BC [Active]; vc1 - PMHx: 22:28 None; vc1 - PSHx: 22:28 None; vc1 - Immunization history:: Client reports having NOT received the Covid vaccine. - Infectious Disease History:: Denies. - Social history:: Smoking status: Patient denies any tobacco usage or history of. ROS: 23:16 Constitutional: As per HPI kb Exam: 23:16 Constitutional: This is a well developed, well nourished patient who is awake, alert, kb and in no acute distress. Head/Face: Normocephalic, atraumatic. ENT: Moist Mucous membranes Cardiovascular: Regular rate Respiratory: Respirations even and unlabored. No increased work of breathing. Talking in full sentences Skin: Warm, dry with normal turgor. Normal color. MS/ Extremity: Pulses equal, no cyanosis. Neurovascular intact. Full, normal range of motion. Neuro: Awake and alert, GCS 15, oriented to person, place, time, and situation. 23:16 Back: pain, that is moderate, of the lumbar area, ROM is painful, Vital Signs: 22:23 BP 146 / 95; Pulse 82; Resp 18; Temp 98.3; Pulse Ox 97% ; Weight 117.93 kg; Height 6 vc1 ft. 1 in. ; Pain 10/10; 22:23 Body Mass Index 34.30 (117.93 kg, 185.42 cm) vc1 22:23 Pain Scale: Adult vc1 MDM: 22:14 Medical Screening Exam initiated kb 23:16 Differential diagnosis: Ligament Injury pinched nerve, bulging disc. Data reviewed: kb vital signs, nurses notes. Test considered but Not performed: X-ray: lumbar xray considered but pt had xray done at chiropractor without acute changes. Pt states she has had this pain several times over the years. Denies new injury or trauma. . Historians other than the Patient: Spouse/Significant Other: significant other. Counseling: I had a detailed discussion with the patient and/or guardian regarding the historical points, exam findings, and any diagnostic results supporting the discharge/admit diagnosis, the need for outpatient follow up, a family practitioner, to return to the emergency department if symptoms worsen or persist or if there are any questions or concerns that arise at home. Administered Medications: 23:11 Drug: Dexamethasone IM 10 mg IM once Route: IM; Site: right deltoid; jb4 23:38 Follow up: Response: No adverse reaction; No change in condition jb4 23:11 Drug: Diazepam PO 5 mg PO once Route: PO; jb4 23:38 Follow up: Response: No adverse reaction; Marked relief of symptoms; Pain is decreased; jb4 RASS: Alert and Calm (0) 23:11 Drug: HYDROcodone-acetaminophen PO 5 mg-325 mg 1 tabs PO once Route: PO; jb4 23:38 Follow up: Response: No adverse reaction; Marked relief of symptoms; Pain is decreased; jb4 RASS: Alert and Calm (0) 23:13 Drug: Ketorolac IM 30 mg IM once Route: IM; Site: left deltoid; jb4 23:38 Follow up: Response: No adverse reaction; Marked relief of symptoms; Pain is decreased jb4 Disposition: 03/29 03:55 Co-signature as Attending Physician, Carlton García MD I agree with the assessment sp4 and plan of care. I reviewed the patient's care provided by the Advanced Practice Provider and agree with the diagnosis and treatment plan. Disposition Summary: 03/28/24 23:20 Discharge Ordered Notes: Location: Home Condition: Stable kb Diagnosis - Low back pain kb Followup: kb - With: Emergency Department - When: As needed - Reason: Worsening of condition Followup: kb - With: Private Physician - When: 2 - 3 days - Reason: Recheck today's complaints, Continuance of care, Re-evaluation by your physician Discharge Instructions: - Discharge Summary Sheet kb - Acute Back Pain, Adult kb Forms: - Medication Reconciliation Form kb - Antibiotic Education kb - Prescription Opioid Use kb - Patient Portal Instructions kb - Leadership Thank You Letter Prescriptions: - Prednisone 20 mg Oral Tablet - take 1 tablet ORAL route once daily for 5 days; 5 tablet; Refills: 0, Product kb Selection Permitted - Diclofenac Sodium 75 mg Oral tablet, delayed release (enteric coated) - take 1 tablet ORAL route 2 times per day As needed; 30 tablet; Refills: 0, kb Product Selection Permitted - orphenadrine citrate 100 mg Oral Tablet Sustained Release - take 1 tablet ORAL route 2 times per day As needed; 20 tablet; Refills: 0, kb Product Selection Permitted Signatures: Kiah Pavon, BINDING PRINTER-C BINDING PRINTER-Ckb Westley Arias RN RN jb4 Salima Gordon RN RN vc1 Carlton García MD MD sp4
--- NOTE | 2024-03-28 23:21 | ER ---
Nurse's Notes [facility] Name: Vita Edwards Age: 33 yrs Sex: Female : 1990 Arrival Date: 03/28/2024 Time: 22:04 Bed 14 Private MD: Diagnosis: Low back pain Presentation: 03/28 22:23 Chief complaint: Patient states: I think my L3-L5 is compressed. The chiropractor vc1 usually helps but not this time. Coronavirus screen: Client denies travel out of the [place] in the last 14 days. At this time, the client does not indicate any symptoms associated with coronavirus-19. Ebola Screen: Patient negative for fever greater than or equal to 101.5 degrees Fahrenheit, and additional compatible Ebola Virus Disease symptoms Patient denies exposure to infectious person. Patient denies travel to an Ebola-affected area in the 21 days before illness onset. No symptoms or risks identified at this time. Initial Sepsis Screen: Does the patient meet any 2 criteria? No. Patient's initial sepsis screen is negative. Does the patient have a suspected source of infection? No. Patient's initial sepsis screen is negative. Risk Assessment: Do you want to hurt yourself or someone else? Patient reports no desire to harm self or others. Onset of symptoms was March 28, 2024. 22:23 Method Of Arrival: Wheelchair vc1 22:23 Acuity: CHINTAN 4 vc1 Triage Assessment: 22:29 General: Appears in no apparent distress. uncomfortable, Behavior is calm, cooperative, vc1 appropriate for age. Pain: Complains of pain in low back area Pain radiates to right leg Pain currently is 10 out of 10 on a pain scale. EENT: No deficits noted. No signs and/or symptoms were reported regarding the EENT system. Neuro: Level of Consciousness is awake, alert, obeys commands, Oriented to person, place, time, situation, Appropriate for age. Cardiovascular: No deficits noted. Respiratory: Airway is patent Respiratory effort is even, unlabored, Respiratory pattern is regular, symmetrical. GI: No deficits noted. No signs and/or symptoms were reported involving the gastrointestinal system. Musculoskeletal: Range of motion: intact in all extremities, Reports pain in low back area. RACE STEWARD: 22:31 LMP 03/15/2024, unknown vc1 Historical: - Allergies: 22:28 No Known Allergies; vc1 - Home Meds: 22:28 oral BC [Active]; vc1 - PMHx: 22:28 None; vc1 - PSHx: 22:28 None; vc1 - Immunization history:: Client reports having NOT received the Covid vaccine. - Infectious Disease History:: Denies. - Social history:: Smoking status: Patient denies any tobacco usage or history of. Screenin:37 [facility] ED Fall Risk Assessment (Adult) History of falling in the last 3 months, jb4 including since admission No falls in past 3 months (0 pts) Confusion or Disorientation No (0 pts) Intoxicated or Sedated No (0 pts) Impaired Gait No (0 pts) Mobility Assist Device Used No (0 pt) Altered Elimination No (0 pt) Score/Fall Risk Level 0 - 2 = Low Risk Oriented to surroundings, Maintained a safe environment. 23:39 Abuse screen: Denies threats or abuse. Nutritional screening: No deficits noted. jb4 Tuberculosis screening: No symptoms or risk factors identified. Assessment: 22:45 General: Appears in no apparent distress. comfortable. Pain: Complains of pain in low jb4 back area Pain does not radiate. Pain currently is 10 out of 10 on a pain scale. Neuro: Level of Consciousness is awake, alert, obeys commands, Oriented to person, place, time, situation. Cardiovascular: Patient's skin is warm and dry. Respiratory: Airway is patent Respiratory effort is even, unlabored, Respiratory pattern is regular, symmetrical. GI: No signs and/or symptoms were reported involving the gastrointestinal system. : No signs and/or symptoms were reported regarding the genitourinary system. EENT: No signs and/or symptoms were reported regarding the EENT system. Derm: Skin is intact, Skin is pink, warm \T\ dry. 23:37 Reassessment: Patient appears in no apparent distress at this time. Patient and/or jb4 family updated on plan of care and expected duration. Pain level reassessed. Patient is alert, oriented x 3, equal unlabored respirations, skin warm/dry/pink. Vital Signs: 22:23 BP 146 / 95; Pulse 82; Resp 18; Temp 98.3; Pulse Ox 97% ; Weight 117.93 kg; Height 6 vc1 ft. 1 in. ; Pain 10/10; 22:23 Body Mass Index 34.30 (117.93 kg, 185.42 cm) vc1 22:23 Pain Scale: Adult vc1 ED Course: 22:13 Patient arrived in ED. jj6 22:14 K[facility]C [facility]. kb 22:14 Carlton García MD is Attending Physician. kb 22:28 Triage completed. vc1 22:29 Arm band placed on right wrist. vc1 23:36 Westley Arias, RN is Primary Nurse. jb4 23:37 Patient has correct armband on for positive identification. Bed in low position. Call jb4 light in reach. Side rails up X 1. Provided Education on: discharge instructions.. 23:37 No provider procedures requiring assistance completed. Patient did not have IV access jb4 during this emergency room visit. Administered Medications: 23:11 Drug: Dexamethasone IM 10 mg IM once Route: IM; Site: right deltoid; jb4 23:38 Follow up: Response: No adverse reaction; No change in condition jb4 23:11 Drug: Diazepam PO 5 mg PO once Route: PO; jb4 23:38 Follow up: Response: No adverse reaction; Marked relief of symptoms; Pain is decreased; jb4 RASS: Alert and Calm (0) 23:11 Drug: HYDROcodone-acetaminophen PO 5 mg-325 mg 1 tabs PO once Route: PO; jb4 23:38 Follow up: Response: No adverse reaction; Marked relief of symptoms; Pain is decreased; jb4 RASS: Alert and Calm (0) 23:13 Drug: Ketorolac IM 30 mg IM once Route: IM; Site: left deltoid; jb4 23:38 Follow up: Response: No adverse reaction; Marked relief of symptoms; Pain is decreased jb4 Medication: 23:37 VIS not applicable for this client. jb4 Outcome: 23:20 Discharge ordered by . kb 23:37 Discharged to home via wheelchair, with family, jb4 23:37 Condition: stable 23:37 Discharge instructions given to patient, Instructed on discharge instructions, follow up and referral plans. no drinking with medication, no driving heavy equipment, medication usage, Demonstrated understanding of instructions, follow-up care, medications, Prescriptions given X 3, 23:39 Patient left the ED. jb4 Signatures: Kiah Pavon FNP-C FNP-Westley Herbert RN RN jb4 Sydni Abdul jj6 Salima Gordon, RN RN vc1
[2024-03-29 07:05] VITALS: BP 146/95; TEMP 98.3; O2SAT 97
== END 2024-03-28 23:39 | disposition home or self-care (01) ==
LOC: ER 22:04
DX: M54.50 Low back pain, unspecified (principal)
CPT/HCPCS: 96372; 99284; J1100

== ENCOUNTER 2024-09-08 05:21 | Emergency (ER) | payer SELFPAY ==
--- OUTSIDE RECORDS SUMMARY | 2024-09-08 05:23 | XMS REPORT | Continuity of Care Document ---
Author Name Unknown Address [address] [facility] [place] [address] [facility] [place] Address [address] [facility] [place] [address] Care Team Providers Care Project Designer Name Role Phone Heriberto Sierra Primary Care Physician [phone] NELLI MCLAIN Attending Clinician Unavailable Nelli Mclain DNP Attending Clinician [phone] Doctor Unassigned, Peterman Attending Clinician U Kelsy Shah MD Attending Clinician [phone] SANDY Attending Clinician Unavailable Nisha Cortez NP Attending Clinician [phone] NISHA CORTEZ Attending Clinician Unavailrio RUEDA Attending Clinician Unavailable Isis Jonas MD Attending Clinician [phone] ISIS JONAS Attending Clinician Unavailable SANDY Admitting Clinician Unavailable MOHIT Admitting Clinician Unavailable Payers Payer Name Policy Type Policy Number Effective Date Expirati on Date Source Problems Condition Name Condition Details Condition Category Status Onset Date Resolution Date Last Treatment Date Treating Clinician Comments Source Obesity (BMI 30-39.9) Obesity (BMI 30-39.9) Disease Active - 00:00: 00 [facility] Scoliosis deformity of spine Scoliosis Deformity of Spine Problem Active 6 00:00: 00 [facility] Malaise and fatigue Malaise and Fatigue Problem Active 6 00:00: 00 [facility] Mild anxiety Mild Anxiety Problem Active 2021-06 0-07 00:00: 00 [facility] History of SARS-CoV-2 History of SARS-CoV-2 Problem Active 7 00:00: 00 [facility] Oral contracept chantel pill surveillan ce Oral contracept chantel pill surveillan ce Disease Resolve d 6 00:00: 00 2023-10-22 00:00:00 2023-10-22 12:14:55 [facility] oral contrace pill frieda oral contrace pill frieda Disease Resolve d 2021-06 0 00:00: 00 2023-10-22 00:00:00 2023-10-22 12:14:50 [facility] BMI 32.0-32.9, adult BMI 32.0-32.9, adult Disease Resolve d 2021-06 007 00:00: 00 2023-10-22 00:00:00 2023-10-22 12:14:53 [facility] Breast pain Breast pain Disease Resolve d 3-08 00:00: 00 2023-10-22 00:00:00 2023-10-22 12:14:58 [facility] Allergies, Adverse Reactions, Alerts Allergy Name Allergy Type Status Severity Reaction(s) Onset Date Inactive Date Treating Clinician Comments Source NO KNOWN ALLERGIE S Drug Class Active [facility] Social History Social Habit Start Date Stop Date Quantity Comments Source Gender identity [facility]OH Alcohol Std Drinks [facility] History SDOH Alcohol Binge [facility] History SDOH Alcohol Comment [facility] History of Social function 2023-10-22 00:00:00 2023-10-22 00:00:00 [facility] Alcoholic beverage intake 2023-10-22 00:00:00 2023-10-22 00:00:00 Lifetime non-drinker (finding) [facility] Tobacco use and exposure 2022-11-26 00:00:00 2022-11-26 00:00:00 Smokeless tobacco non-user [facility] Alcohol intake 2022-11-26 00:00:00 2022-11-26 00:00:00 Lifetime non-drinker (finding) [facility] Exposure to SARS-CoV-2 (event) 2022-03-10 00:00:00 2022-03-20 09:07:00 Not sure [facility] History SDOH Alcohol Frequency 2020-06-19 00:00:00 2020-06-19 00:00:00 1 [facility] Sex assigned at 1990 00:00:00 1990 00:00:00 [facility] Smoking Status Start Date Stop Date Source Unknown if ever smoked Un[facility] Never smoked tobacco [facility] Medications Ordered Medication Name Filled Medication Name Start Date Stop Date Current Medication? Ordering Clinician Indication Dosage Frequency Signature (SIG) Comments Components Source norgestimat e-ethinyl estradioL (FEMYNOR) 0.25-35 mg-mcg per tablet 10-21 00:00: 00 Yes [id number] 1{tbl} Take 1 tablet by mouth in the morning. [facility] busPIRone 10 mg tablet 7-10 00:00: 00 Yes [id number] TAKE 1 TABLET BY MOUTH IN THE MORNING AND IN THE EVENING [facility] busPIRone 10 mg tablet 6-15 00:00: 00 12-21 00:00 :00 No [id number] 10mg Take 1 tablet by mouth in the morning and 1 tablet in the evening. [facility] norgestimat e-ethinyl estradioL (FEMYNOR) 0.25-35 mg-mcg per tablet 2021-06 007 00:00: 00 10-21 00:00 :00 No [id number] 1{tbl} Take 1 tablet by mouth in the morning. [facility] buPROPion SR (WELLBUTRIN SR) 100 mg SR tablet 2021-06 0-07 00:00: 00 11-26 00:00 :00 No [id number] 100mg Take 1 tablet by mouth in the morning and 1 tablet in the evening. [facility] norgestimat e-ethinyl estradioL (FEMYNOR) 0.25-35 mg-mcg per tablet 2020-06 0- 00:00: 00 03-20 00:00 :00 No [id number] 1{tbl} Take 1 tablet by mouth daily. [facility] norgestimat e-ethinyl estradioL (FEMYNOR) 0.25-35 mg-mcg per tablet 4-11 00:00: 00 04-03 00:00 :00 No [id number] 1{tbl} Take 1 tablet by mouth daily. [facility] erythromyci n 2 % gel 3-04 00:00: 00 Yes [id number] Apply to area(s) daily. [facility] Estarylla 0.25 mg-35 mcg tablet TAKE 1 TABLET BY MOUTH DAILY Estarylla 0.25 mg-35 mcg tablet TAKE 1 TABLET BY MOUTH DAILY No Estarylla 0.25 mg-35 mcg tablet TAKE 1 TABLET BY MOUTH DAILY [facility] ProAir RespiClick 90 mcg/actuati on breath activated INHALE 2 PUFFS EVERY 6 HOURS NEEEDED ProAir RespiClick 90 mcg/actuati on breath activated INHALE 2 PUFFS EVERY 6 HOURS NEEEDED No ProAir RespiClick 90 mcg/actuat ion breath activated INHALE 2 PUFFS EVERY 6 HOURS NEEEDED [facility] Wellbutrin XL 150 mg 24 hr tablet, extended release Take 1 tablet every day by oral route for 50 days. Wellbutrin XL 150 mg 24 hr tablet, extended release Take 1 tablet every day by oral route for 50 days. No 1 Q1D Wellbutrin XL 150 mg 24 hr tablet, extended release Take 1 tablet every day by oral route for 50 days. [facility] bupropion HCl XL 150 mg 24 hr [...] DAY BY ORAL ROUTE FOR 50 DAYS [facility] hydroxyzine HCl 25 mg tablet TAKE 2 TABLETS BY MOUTH AT BEDTIME hydroxyzine HCl 25 mg tablet TAKE 2 TABLETS BY MOUTH AT BEDTIME No hydroxyzin e HCl 25 mg tablet TAKE 2 TABLETS BY MOUTH AT BEDTIME [facility] ProAir RespiClick 90 mcg/actuati on breath activated INHALE 2 PUFFS EVERY 6 HOURS NEEEDED ProAir RespiClick 90 mcg/actuati on breath activated INHALE 2 PUFFS EVERY 6 HOURS NEEEDED No ProAir RespiClick 90 mcg/actuat ion breath activated INHALE 2 PUFFS EVERY 6 HOURS NEEEDED [facility] Wellbutrin XL 300 mg 24 hr tablet, extended release Take 1 tablet every day by oral route for 60 days. Wellbutrin XL 300 mg 24 hr tablet, extended release Take 1 tablet every day by oral route for 60 days. No 1 Q1D Wellbutrin XL 300 mg 24 hr tablet, extended release Take 1 tablet every day by oral route for 60 days. [facility] Vital Signs Vital Name Observation Time Observation Value Comments S raquelce Systolic blood pressure 2023-10-22 16:17:00 125 mm[Hg] [facility] Diastolic blood pressure 2023-10-22 16:17:00 75 mm[Hg] [facility] Heart rate 2023-10-22 16:17:00 65 /min [facility] Body temperature 2023-10-22 16:17:00 36.67 Ammy [facility] Respiratory rate 2023-10-22 16:17:00 18 /min [facility] Body height 2023-10-22 16:17:00 185.4 cm [facility] Body weight 2023-10-22 16:17:00 115.214 kg [facility] BMI 2023-10-22 16:17:00 33.51 kg/m2 [facility] BP Diastolic 2023-01-07 00:00:00 70 mm[Hg] [facility] Height 2023-01-07 00:00:00 73 [in_i] [facility] BMI (Body Mass Index) 2023-01-07 00:00:00 32.1 kg/m2 [facility] BP Systolic 2023-01-07 00:00:00 126 mm[Hg] [facility] Body Weight 2023-01-07 00:00:00 3888 [oz_av] [facility] Systolic blood pressure 2022-11-26 13:43:00 117 mm[Hg] [facility] Diastolic blood pressure 2022-11-26 13:43:00 80 mm[Hg] [facility] Heart rate 2022-11-26 13:43:00 77 /min [facility] Respiratory rate 2022-11-26 13:43:00 18 /min [facility] Body height 2022-11-26 13:43:00 185.4 cm [facility] Body weight 2022-11-26 13:43:00 110.224 kg [facility] BMI 2022-11-26 13:43:00 32.06 kg/m2 [facility] BP Diastolic 2022-11-26 00:00:00 74 mm[Hg] [facility] Height 2022-11-26 00:00:00 73 [in_i] [facility] BMI (Body Mass Index) 2022-11-26 00:00:00 31.5 kg/m2 [facility] BP Systolic 2022-11-26 00:00:00 130 mm[Hg] [facility] Body Weight 2022-11-26 00:00:00 3824 [oz_av] [facility] Systolic blood pressure 2022-03-20 14:17:00 132 mm[Hg] [facility] Diastolic blood pressure 2022-03-20 14:17:00 83 mm[Hg] [facility] Heart rate 2022-03-20 14:17:00 79 /min Un[facility] Respiratory rate 2022-03-20 14:17:00 18 /min [facility] Body height 2022-03-20 14:17:00 182.9 cm [facility] Body weight 2022-03-20 14:17:00 109.226 kg [facility] BMI 2022-03-20 14:17:00 32.66 kg/m2 [facility] Oxygen saturation in Arterial blood by Pulse oximetry 2022-03-20 14:17:00 97 /min [place] [facility] Procedures Procedure Date / Time Performed Performing Clinicia n Source ASSIGNMENT OF BENEFITS 2022-11-26 13:29:52 Docto r Unassigned, Peterman [facility] ASSIGNMENT OF BENEFITS 2020-06-19 20:47:34 Docto r Unassigned, Peterman [facility] Plan of Care Planned Activity Planned Date Details Comments Source Future Scheduled Test Improved m ood, reduced anxiety. [code = Improved mood, reduced anxiety.] [facility] Instructions [facility] Encounters Start Date/Time End Date/Time Encounter Type Admission Type Attending Clinicians Care Facility Care Department Encounter ID Source 2024-04-22 00:00:00 2024-04-24 09:04:28 Refill Nelli Mclain [facility] 1.2.840.114 350.1.13.10 4.2.7.2.686 [id number] 134 [id number] [facility] 2024-01-13 00:00:00 2024-01-13 09:08:58 Telephone Nelli Mclain [facility] 1.2.840.114 350.1.13.10 4.2.7.2.686 [id number] 134 [id number] [facility] 2023-10-29 00:00:00 2023-11-23 14:44:01 Patient Secure Msg Doctor Unassigned, Peterman [facility] 1.2.840.114 350.1.13.10 4.2.7.2.686 [id number] 134 [id number] [facility] 2023-10-28 00:00:00 2023-10-28 12:55:54 Telephone Nelli Mclain [facility] 1.2.840.114 350.1.13.10 4.2.7.2.686 [id number] [facility] 2023-10-22 10:30:00 2023-10-22 11:51:24 Outpatient R NELLI MCLAIN [facility] [id number] [facility] 2023-10-22 10:30:00 2023-10-22 11:51:24 Office Visit Nelli Mclain [facility] 1.2.840.114 350.1.13.10 4.2.7.2.686 [id number] 134 [id number] [facility] 2023-10-06 00:00:00 2023-10-06 00:00:00 Telephone Kelsy Muller [facility] 1.2.840.114 350.1.13.10 4.2.7.2.686 [id number] [facility] 2023-04-06 00:00:00 2023-04-06 00:00:00 Outpatient [facility] [id number] [facility] 2023-04-05 00:00:00 2023-04-05 00:00:00 Outpatient [facility] [id number] [facility] 2023-03-23 00:00:00 2023-03-23 00:00:00 Outpatient [facility] [id number] [facility] 2023-03-22 00:00:00 2023-03-22 00:00:00 Outpatient [facility] [id number] [facility] 2023-02-25 00:00:00 2023-02-25 00:00:00 Outpatient [facility] [id number] [facility] 2023-02-16 00:00:00 2023-02-16 00:00:00 Patient Secure Doctor Unassigned, Peterman [facility] 1.2.840.114 350.1.13.10 4.2.7.2.686 [id number] 134 [id number] [facility] 2023-02-15 00:00:00 2023-02-15 00:00:00 Nisha Montero [facility] 1.2.840.114 350.1.13.10 4.2.7.2.686 [id number] [facility] 2023-02-11 00:00:00 2023-02-11 00:00:00 Outpatient [facility] [id number] [facility] 2023-02-10 00:00:00 2023-02-10 00:00:00 Outpatient [facility] [id number] [facility] 2023-02-01 00:00:00 2023-02-01 00:00:00 Outpatient [facility] [id number] [facility] 2023-01-28 00:00:00 2023-01-28 00:00:00 Outpatient [facility] [id number] [facility] 2023-01-27 00:00:00 2023-01-27 00:00:00 Outpatient [facility] [id number] [facility] 2023-01-16 00:00:00 2023-01-16 00:00:00 Outpatient [facility] [id number] [facility] 2023-01-15 00:00:00 2023-01-15 00:00:00 Outpatient [facility] [id number] [facility] 2023-01-07 00:00:00 2023-01-07 00:00:00 Outpatient [facility] [id number] [facility] 2023-01-07 00:00:00 2023-01-07 00:00:00 Vivian [facility]: [address] [place] [address] , Ph. [facility], DR[address] KAUFMAN [id number] [facility] 2023-01-05 00:00:00 2023-01-05 00:00:00 Outpatient [facility] [id number] [facility] 2022-12-19 00:00:00 2022-12-19 00:00:00 Refill Nisha Cortez [facility] 1.2.840.114 350.1.13.10 4.2.7.2.686 [id number] 134 [id number] [facility] 2022-12-01 00:00:00 2022-12-01 00:00:00 Outpatient [facility] [id number] [facility] 2022-11-26 08:30:00 2022-11-26 09:02:59 Office Visit Nisha Cortez [facility] 1..840.114 350.1.13.10 4.2.7.2.686 [id number] [facility] 2022-11-26 08:30:00 2022-11-26 09:02:59 Outpatient R NISHA CORTEZ [facility]ERYAL [facility] [id number] [facility] 2022-11-26 00:00:00 2022-11-26 00:00:00 Outpatient [facility] [id number] [facility] 2022-11-26 00:00:00 2022-11-26 00:00:00 Outpatient [facility] 15 [facility] 2022-11-26 00:00:00 2022-11-26 00:00:00 Patient Secure Nisha Cortez [facility] 1..840.114 350.1.13.10 4.2.7.2.686 [id number] [facility] 2022-11-26 00:00:00 2022-11-26 00:00:00 Orders Only Doctor Unassigned, Peterman [facility] 1..840.114 350.1.13.10 4.2.7.2.686 [id number] [facility] 2022-11-26 00:00:00 2022-11-26 00:00:00 Vivian Dobson [facility]ICE [facility]GER-C: [address], [facility], [place] [address] , Ph. [phone] [facility] - [facility], [address] KAUFMAN [id number] [facility] 2022-11-17 00:00:00 2022-11-17 00:00:00 Outpatient SISSON[facility]C [facility] [id number] [facility] 2022-11-17 00:00:00 2022-11-17 00:00:00 Outpatient [facility] 06 [facility] 2022-06-22 15:30:00 2022-06-22 15:30:00 Outpatient NISHA MAC [facility] [id number] [facility] 2022-04-11 00:00:00 2022-04-11 00:00:00 Refill AnamariaolgapatrickNisha [facility] 1.2.840.114 350.1.13.10 4.2.7.2.686 [id number] [facility] 2022-03-20 09:30:00 2022-03-20 09:36:34 [facility] [id number] [facility] 2022-03-20 09:30:00 2022-03-20 09:36:34 Office Visit DanaGideysi [facility] 1..840.114 350.1.13.10 4.2.7.2.686 [id number] [facility] 2022-03-17 13:00:00 2022-03-17 13:00:00 Outpatient R NISHA CORTEZ [facility] [id number] [facility] 2022-03-10 00:00:00 2022-03-10 00:00:00 Refill Pritesh Isis [facility] 1.2.840.114 350.1.13.10 4.2.7.2.686 [id number] [facility] 2021-06-19 14:00:00 2021-06-19 14:00:00 Outpatient R ISIS JONAS [facility] [id number] [facility] 2021-04-03 00:00:00 2021-04-03 00:00:00 Telephone Isis Jonas [facility] 1..840.114 350.1.13.10 4.2.7.2.686 [id number] [facility] 2020-08-26 15:15:00 2020-08-26 15:15:00 Outpatient R ISIS JONAS [facility] [id number] [facility] 2020-08-15 11:00:00 2020-08-15 11:00:00 Outpatient R ISIS JONAS [facility] [id number] [facility] 2020-06-19 15:00:00 2020-06-19 15:00:00 Outpatient R [facility] [id number] [facility] 2020-06-19 00:00:00 2020-06-19 00:00:00 Orders Only Doctor Unassigned, Peterman [facility] 1.2.840.114 350.1.13.10 4.2.7.2.686 [id number] [facility] Notes Date/Time Note Provider Source 2024-04-22 12:39:48 Vita Venegas is a 33 year old female is calling to request a refill for norgestimate-ethinyl estradioL (FEMYNOR) 0.25-35 mg-mcg per tablet [facility]/pharmacy #[id number] - [place], [place] - [facility] [address] AT [facility] [address] [facility] [id number] Nuris Thomson 04/22/2024 12:40 PM [facility] 2024-01-13 09:06:30 Received fax from [facility]. They need pt's mailing address and insurance info. Address given and self pay. Faxed back. BECKY WONG RN 01/13/2024 9:08 AM Becky Wong RN [facility] 2023-11-23 14:43:30 Name and verified. Pt advised of results and plan of care as stated below per provider. Pt verbalized understanding. BECKY WONG RN 11/23/2023 2:43 PM Becky Wong RN [facility] 2023-10-29 13:35:49 Per Brendon, K- HPV and STD negative. Notify pt. LM on VM for pt to return call regarding results and plan of care. [employer] message sent. BECKY WONG RN 10/29/2023 1:37 PM Becky Wong RN [facility] 2023-10-28 12:55:07 Received [facility] results via fax. Placed on provider's desk for review. BECKY WONG RN 10/28/2023 12:55 PM Becky Wong RN [facility] 2023-10-08 08:31:50 Attempted to contact patient by phone, number not in service, [employer] message sent. Sharon Haas RN 10/08/2023 8:31 AM Sharon Haas RN [facility] 2023-10-06 16:30:23 Attempted to contact patient by phone, number not in service. Sharon Haas RN 10/06/2023 4:30 PM [facility] 2023-10-06 12:39:50 Pt calling for refill on control she is scheduled for her wwe. Tika Treviño [facility] 2023-02-19 11:33:34 Formatting of this n ote might be different from the original. Refill request denied, pt will need an appt for a wwe, last wwe was on 06/19/2020. The office has attempted to contact pt by phone as well as by [employer]. [facility] 2023-02-16 09:26:03 Formatting of this n ote might be different from the original. Attempted to contact pt to let her know she is due for an appt prior to refill of ocp. Number was disconnected. Unable to leave a voicemail. Will send [employer] message. Chery Heller MA [facility]
[2024-09-08] MEDS ORDERED: NA CHLORIDE 0.9% 1,000 ML ONE (06:04)
[2024-09-08 06:39] LABS: Absolute Basophils 0.1 K/uL (0-0.5); Absolute Eosinophils 0.3 K/uL (0-0.5); Absolute Lymphocytes (CBC) 2.6 K/uL (0.7-4.9); Absolute Monocytes 0.8 K/uL (0.1-1.3); Absolute Neutrophil 6.7 K/uL (1.8-8.0); Basophils % 0.5 % (0-1.3); Eosinophils % 2.4 % (0-4.4); Hematocrit 39.4 % (36.0-45.0); Hemoglobin 13.4 g/dL (12.0-15.0); Lymphocytes % 24.8 % (15.3-44.8); MCH 30.9 pg (27.0-35.0); MCV 90.9 fL (80-100); MPV 7.5 fL (7.6-11.3); Monocytes % 7.6 % (3.3-12.3); Neutrophils % 64.7 % (41.7-73.7); Platelets 460 thou/uL (152-406); RBC Red Blood Cell Count 4.33 M/uL (3.86-4.86); Red Cell Distribution Width 12.9 % (12.1-15.2)
[2024-09-08 06:54] LABS: Specific Gravity 1.005 (1.005-1.030); Sqamous Epithelial <5 /HPF (None Seen); Urine Bacteria None Seen /HPF (<20); Urine Bilirubin NEGATIVE (Negative); Urine Blood 2+ (Negative); Urine Clarity Turbid (Clear); Urine Color Colorless (Yellow); Urine Culture Reflex Order NOT NEEDED; Urine Glucose NEGATIVE (Negative); Urine Ketones NEGATIVE (Negative); Urine Microscopic Reflex YN ORDER UMIC; Urine Nitrite NEGATIVE (Negative); Urine Protein NEGATIVE (Negative); Urine RBC <5 /HPF (None Seen); Urine Urobilinogen Normal (Normal); Urine WBC <5 /HPF (<5); Urine pH 5.5 (5.0-7.0)
[2024-09-08 06:58] LABS: Albumin 3.7 g/dL (3.4-5.0); Albumin/Globulin Ratio 0.9 (1.1-1.8); Anion Gap 10.2 mEq/L (5.0-15.0); Bilirubin Total 0.3 mg/dL (0.2-1.0); Globulin 4.3 g/dL (2.3-3.5); Potassium 4.2 mEq/L (3.5-5.1)
--- NOTE | 2024-09-08 07:03 | EDPHYS ---
Physician Documentation [facility] Name: Vita Edwards Age: 33 yrs Sex: Female : 1990 Arrival Date: 09/08/2024 Time: 05:21 Bed 6 Private MD: JOANNA Physician Cleveland Patel HPI: 09/08 05:56 This 33 yrs old Female presents to ER via Ambulatory with complaints of irena Abdominal Pain. 05:56 The patient presents with vaginal bleeding that is moderate. Onset: The irena symptoms/episode began/occurred this morning, today. Modifying factors: The symptoms are alleviated by nothing, the symptoms are aggravated by nothing. Associated signs and symptoms: The patient has no apparent associated signs or symptoms. Severity of symptoms: At their worst the symptoms were moderate, in the emergency department the symptoms are unchanged. The estimated gestational age is 6 weeks. 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 Flu vaccine is not up to date. - Infectious Disease History:: Denies. - Social history:: Smoking status: Patient denies any tobacco usage or history of. - Family history:: not pertinent. ROS: 05:56 Constitutional: Negative for fever, chills, and weight loss, Eyes: Negative for injury, irena pain, redness, and discharge, ENT: Negative for injury, pain, and discharge, Neck: Negative for injury, pain, and swelling, Cardiovascular: Negative for chest pain, palpitations, and edema, Respiratory: Negative for shortness of breath, cough, wheezing, and pleuritic chest pain, Back: Negative for injury and pain, MS/Extremity: Negative for injury and deformity, Skin: Negative for injury, rash, and discoloration, Neuro: Negative for headache, weakness, numbness, tingling, and seizure, Psych: Negative for depression, anxiety, suicide ideation, homicidal ideation, and hallucinations, Allergy/Immunology: Negative for hives, rash, and allergies, Endocrine: Negative for neck swelling, polydipsia, polyuria, polyphagia, and marked weight changes, Hematologic/Lymphatic: Negative for swollen nodes, abnormal bleeding, and unusual bruising, 05:56 Abdomen/GI: Positive for abdominal pain, abdominal cramps, of the suprapubic area, 05:56 : Positive for pelvic pain, vaginal bleeding, Exam: 05:56 Constitutional: This is a well developed, well nourished patient who is awake, alert, irena and in no acute distress. Head/Face: Normocephalic, atraumatic. Eyes: Pupils equal round and reactive to light, extra-ocular motions intact. Lids and lashes normal. Conjunctiva and sclera are non-icteric and not injected. Cornea within normal limits. Periorbital areas with no swelling, redness, or edema. ENT: Nares patent. No nasal discharge, no septal abnormalities noted. Tympanic membranes are normal and external auditory canals are clear. Oropharynx with no redness, swelling, or masses, exudates, or evidence of obstruction, uvula midline. Mucous membranes moist. Neck: Trachea midline, no thyromegaly or masses palpated, and no cervical lymphadenopathy. Supple, full range of motion without nuchal rigidity, or vertebral point tenderness. No Meningismus. Chest/axilla: Normal chest wall appearance and motion. Nontender with no deformity. No lesions are appreciated. Cardiovascular: Regular rate and rhythm with a normal S1 and S2. No gallops, murmurs, or rubs. Normal PMI, no JVD. No pulse deficits. Respiratory: Lungs have equal breath sounds bilaterally, clear to auscultation and percussion. No rales, rhonchi or wheezes noted. No increased work of breathing, no retractions or nasal flaring. Back: No spinal tenderness. No costovertebral tenderness. Full range of motion. Skin: Warm, dry with normal turgor. Normal color with no rashes, no lesions, and no evidence of cellulitis. MS/ Extremity: Pulses equal, no cyanosis. Neurovascular intact. Full, normal range of motion., bilateral aka Neuro: Awake and alert, GCS 15, oriented to person, place, time, and situation. Cranial nerves II-XII grossly intact. Motor strength 5/5 in all extremities. Sensory grossly intact. Cerebellar exam normal. Normal gait. Psych: Awake, alert, with orientation to person, place and time. Behavior, mood, and affect are within normal limits. 05:56 Abdomen/GI: Inspection: abdomen appears normal, Bowel sounds: normal, Palpation: abdomen is soft and non-tender, Liver: no appreciated palpable abnormalities, Hernia: not appreciated, 05:56 : CVA tenderness, is absent, Sexual behavior: the patient is sexually active, and reports a single partner, Vital Signs: 05:50 BP 151 / 102; Pulse 98; Resp 18; Temp 97.7; Pulse Ox 100% ; Weight 117.93 kg; Height 6 vc1 ft. 1 in. ; 06:31 BP 130 / 95; Pulse 93; Resp 17 S; Pulse Ox 100% on R/A; lg3 05:50 Body Mass Index 34.30 (117.93 kg, 185.42 cm) vc1 MDM: 05:32 Medical Screening Exam initiated irena 06:00 Differential diagnosis: ectopic , nonspecific abdominal pain, threatened Ab, irena inevitable Ab, complete Ab, retained Ab, septic Ab, missed Ab, postcoital bleeding, uterine fibroids, urinary tract infection, vaginosis. Data reviewed: vital signs, nurses notes, lab test result(s), radiologic studies, ultrasound. Consideration of Admission/Observation Escalation of care including admission/observation considered. I considered the following discharge prescriptions or medication management in the emergency department Medications were administered in the Emergency Department. See MAR. Independent interpretation of the following test(s) in the Emergency Department Radiology Department Ultrasound: My interpretation is vag probe usg. Historians other than the Patient: Spouse/Significant Other: well informed. pt well informed. Care significantly affected by the following chronic conditions: Obesity. Counseling: I had a detailed discussion with the patient and/or guardian regarding the historical points, exam findings, and any diagnostic results supporting the discharge/admit diagnosis, lab results, radiology results, the need for outpatient follow up, for definitive care, an OB/Gyne specialist. 09/08 05:33 Order name: CBC with Diff; Complete Time: 06:51 [facility] 09/08 05:33 Order name: CMP; Complete Time: 06:58 [facility] 09/08 05:33 Order name: Lipase; Complete Time: 06:58 [facility] 09/08 05:33 Order name: Test, Urine; Complete Time: 06:58 [facility] 09/08 05:33 Order name: Urinalysis w/ reflexes; Complete Time: 06:58 [facility] 09/08 05:46 Order name: Abo/rh Typing [facility] 09/08 05:46 Order name: Quantitative Hcg; Complete Time: 06:58 [facility] 09/08 05:46 Order name: US Transvaginal Ob [facility] 09/08 05:34 Order name: IV Saline Lock; Complete Time: 06:26 [facility] 09/08 05:34 Order name: Labs collected and sent; Complete Time: 06:26 [facility] 09/08 05:46 Order name: NPO; Complete Time: 06:26 [facility] Administered Medications: 05:45 CANCELLED (Duplicate Order): [id number] mg IVP once; dilute with 10 mL 0.9% NaCl; [facility] give over 2 minutes 05:45 CANCELLED (Duplicate Order): morphineor iv 4 mg IVP once over 4 mins [facility] 06:34 Drug: NS 0.9% IV 1000 ml IV at 1 bolus Per protocol; to be given as a bolus over 60 lg3 minutes Route: IV; Rate: 1 bolus; Site: right antecubital; 07:25 Follow up: Response: No adverse reaction ap3 07:22 Not Given (Not given during previous shiftt): ondansetron 4 mg IVP once; over 2 minutes ap3 Disposition Summary: 09/08/24 07:02 Discharge Ordered Notes: Location: Home [facility] Problem: new irena Symptoms: have improved irena Condition: Stable irena Diagnosis - Dysmenorrhea, unspecified irena - Other specified abnormal uterine and vaginal bleeding irena - Threatened irena Followup: irena - With: Private Physician - When: 2 - 3 days - Reason: Recheck today's complaints, Continuance of care, Re-evaluation by your physician Discharge Instructions: - Discharge Summary Sheet irena - Dysmenorrhea irena - Care irena - Threatened Miscarriage irena - Vaginal Bleeding During , First Trimester irena - First Trimester of , Lrrl-yr-Hmth irena - First Trimester of irena - Threatened Miscarriage, Awcq-nu-Jniu irena - Abnormal Uterine Bleeding, Gxmi-em-Oboz irena - Vaginal Bleeding During , First Trimester, Kdlx-gq-Kaya irena Forms: - Medication Reconciliation Form irena - Antibiotic Education irena - Prescription Opioid Use irena - Patient Portal Instructions irena - Leadership Thank You Letter irena Signatures: Dispatcher [employer] EDCleveland Pinedo MD MD cha Able, Lacie, RN RN lg3 Salima Gordon RN RN vc1 Nayely Mendoza RN ap3 Corrections: (The following items were deleted from the chart) 05:34 05:34 CBC+H.LAB.BRZ ordered. EDMS EDMS 05:34 05:34 COMPREHENSIVE METABOLIC PANEL+C.LAB.BRZ ordered. EDMS EDMS 05:34 05:34 LIPASE+C.LAB.BRZ ordered. EDMS EDMS 05:34 05:34 Test, Urine+UC.LAB.BRZ ordered. EDMS EDMS 05:34 05:34 Urinalysis+U.LAB.BRZ ordered. EDMS EDMS 05:34 05:34 Abdomen Pelvis W Con+CT.RAD.BRZ ordered. EDMS EDMS 05:34 05:34 Abdomen Limited+US.RAD.BRZ ordered. EDMS EDMS 05:45 05:34 Famotidine IVP 20 mg IVP once; dilute with 10 mL 0.9% NaCl; give over 2 minutes irena ordered. irena 05:45 05:34 morphine IVP or IV 4 mg IVP once over 4 mins ordered. irena irena 05:46 05:46 ABO/RH TYPING+BB.LAB.BRZ ordered. EDMS EDMS 05:46 05:46 QUANTITATIVE HCG+C.LAB.BRZ ordered. EDMS EDMS 05:46 05:46 Transvaginal Ob+US.RAD.BRZ ordered. EDMS EDMS
--- NOTE | 2024-09-08 07:03 | ER ---
Nurse's Notes [facility] Name: Vita Edwards Age: 33 yrs Sex: Female : 1990 Arrival Date: 09/08/2024 Time: 05:21 Bed 6 Private MD: Diagnosis: Dysmenorrhea, unspecified;Other specified abnormal uterine and vaginal bleeding;Threatened Presentation: 09/08 05:50 Chief complaint: Patient states: about 5 weeks woke up with severe abdominal vc1 pain radiating to back and heavy bleeding. Coronavirus screen: Client denies travel out of the [place] in the last 14 days. At this time, the client does not indicate any symptoms associated with coronavirus-19. Ebola Screen: Patient negative for fever greater than or equal to 101.5 degrees Fahrenheit, and additional compatible Ebola Virus Disease symptoms Patient denies exposure to infectious person. Patient denies travel to an Ebola-affected area in the 21 days before illness onset. No symptoms or risks identified at this time. Initial Sepsis Screen: Does the patient meet any 2 criteria? No. Patient's initial sepsis screen is negative. Does the patient have a suspected source of infection? No. Patient's initial sepsis screen is negative. Risk Assessment: Do you want to hurt yourself or someone else? Patient reports no desire to harm self or others. Onset of symptoms was September 08, 2024. 05:50 Method Of Arrival: Ambulatory vc1 05:50 Acuity: CHINTAN 3 vc1 Triage Assessment: 05:53 General: Appears in no apparent distress. uncomfortable, Behavior is cooperative, vc1 anxious. Pain: Complains of pain in right lower quadrant and left lower quadrant Pain radiates to low back area Quality of pain is described as sharp, Also complains of vaginal bleeding. EENT: No deficits noted. No signs and/or symptoms were reported regarding the EENT system. Neuro: Level of Consciousness is awake, alert, obeys commands, Oriented to person, place, time, situation, Appropriate for age. Cardiovascular: Capillary refill < 3 seconds Patient's skin is warm and dry. Respiratory: Airway is patent Respiratory effort is even, unlabored, Respiratory pattern is regular, symmetrical. GI: Abdomen is round non-distended, Reports lower abdominal pain. : Reports vaginal bleeding that is bright red, heavy flow. Derm: Skin is intact, is healthy with good turgor, Skin is dry, Skin is normal, Skin temperature is warm. Musculoskeletal: Circulation, motion, and sensation intact. Range of motion: intact in all extremities. 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 Flu vaccine is not up to date. - Infectious Disease History:: Denies. - Social history:: Smoking status: Patient denies any tobacco usage or history of. - Family history:: not pertinent. Screenin:55 [facility] ED Fall Risk Assessment (Adult) History of falling in the last 3 months, vc1 including since admission No falls in past 3 months (0 pts) Confusion or Disorientation No (0 pts) Intoxicated or Sedated No (0 pts) Impaired Gait No (0 pts) Mobility Assist Device Used No (0 pt) Altered Elimination No (0 pt) Score/Fall Risk Level 0 - 2 = Low Risk Oriented to surroundings, Maintained a safe environment, Educated pt \T\ family on fall prevention, incl call for assistance when getting out of bed. Abuse screen: Denies threats or abuse. Nutritional screening: No deficits noted. Tuberculosis screening: No symptoms or risk factors identified. Assessment: 06:31 General: Appears in no apparent distress. comfortable, Behavior is calm, cooperative. lg3 Pain: Complains of pain in abdomen Pain radiates to low back area. Neuro: No deficits noted. Horton Agitation-Sedation Scale (RASS): 0 - Alert and Calm Level of Consciousness is awake, alert, obeys commands, Oriented to person, place, time, situation. Cardiovascular: No deficits noted. Denies chest pain, shortness of breath, Capillary refill < 3 seconds Clubbing of nail beds is absent JVD is absent Patient's skin is warm and dry. Respiratory: No deficits noted. Airway is patent Respiratory effort is even, unlabored, Respiratory pattern is regular, symmetrical. GI: Abdomen is round non-distended, Bowel sounds present X 4 quads. Abd is soft X 4 quads. : Reports vaginal bleeding that is heavy flow. EENT: No deficits noted. No signs and/or symptoms were reported regarding the EENT system. Derm: No deficits noted. No signs and/or symptoms reported regarding the dermatologic system. Skin is intact, is healthy with good turgor, Skin is dry, Skin is normal, Skin temperature is warm. Musculoskeletal: No deficits noted. No signs and/or symptoms reported regarding the musculoskeletal system. Circulation, motion, and sensation intact. Range of motion: intact in all extremities. 07:24 Reassessment: Patient and/or family updated on plan of care and expected duration. Pain ap3 level reassessed. Patient is alert, oriented x 3, equal unlabored respirations, skin warm/dry/pink. Vital Signs: 05:50 BP 151 / 102; Pulse 98; Resp 18; Temp 97.7; Pulse Ox 100% ; Weight 117.93 kg; Height 6 vc1 ft. 1 in. ; 06:31 BP 130 / 95; Pulse 93; Resp 17 S; Pulse Ox 100% on R/A; lg3 05:50 Body Mass Index 34.30 (117.93 kg, 185.42 cm) vc1 ED Course: 05:23 Patient arrived in ED. [id number] 05:32 Cleveland Patel MD is Attending Physician. [facility] 05:52 Triage completed. vc1 05:53 Arm band placed on right wrist. vc1 05:56 Patient has correct armband on for positive identification. Bed in low position. Call vc1 light in reach. Pulse ox on. NIBP on. 06:30 Inserted saline lock: 20 gauge in right antecubital area, using aseptic technique. oe Blood collected. Flushed with 10 mL NS. 06:31 Door closed. Noise minimized. Warm blanket given. Pillow given. Family accompanied lg3 patient. 07:00 Transvaginal Ob In Process Unspecified. EDMS 07:22 Nayely Mendoza, RN is Primary Nurse. ap3 07:23 No provider procedures requiring assistance completed. IV discontinued, intact, ap3 bleeding controlled, No redness/swelling at site. Pressure dressing applied. 07:24 Provided Education on: discharge isntructions. ap3 Administered Medications: 05:45 CANCELLED (Duplicate Order): [id number] mg IVP once; dilute with 10 mL 0.9% NaCl; irena give over 2 minutes 05:45 CANCELLED (Duplicate Order): morphineor iv 4 mg IVP once over 4 mins irena 06:34 Drug: NS 0.9% IV 1000 ml IV at 1 bolus Per protocol; to be given as a bolus over 60 lg3 minutes Route: IV; Rate: 1 bolus; Site: right antecubital; 07:25 Follow up: Response: No adverse reaction ap3 07:22 Not Given (Not given during previous shiftt): ondansetron 4 mg IVP once; over 2 minutes ap3 Medication: 05:56 VIS not applicable for this client. vc1 Outcome: 07:02 Discharge ordered by . irena 07:23 Discharged to home ambulatory, with significant other, ap3 07:23 Condition: good 07:23 Discharge instructions given to patient, family, Instructed on discharge instructions, follow up and referral plans. Demonstrated understanding of instructions, follow-up care, 07:24 Patient left the ED. ap3 Signatures: Dispatcher [employer] EDMS Cleveland Patel MD MD cha Espinosa, Orlando oe Prokisch, Amanda RN RN ap3 Ruby Sexton RN RN lg3 Sydni Abdul6 Salima Gordon RN RN vc1
[2024-09-08 07:32] VITALS: TEMP 97.7; O2SAT 100
[2024-09-08 07:37] VITALS: BP 130/95
--- NOTE | 2024-09-08 08:44 | RAD REPORT ---
EXAMINATION: US Transvaginal OB CLINICAL INDICATION: Female 33 years old.[facility] MAIN Abd cramping, ;Vaginal bleeding Bed Name: 6 TECHNIQUE: Real-time ultrasonography of the pelvis was performed transvaginally. Color and spectral D oppler evaluation of the ovaries was performed. COMPARISON: No prior exam. FINDINGS: UTERUS AND CERVIX: The uterus measures 8.29 cm in length. The uterus is normal. No masses seen The en dometrium is normal, 0.3 cm in thickness. RIGHT OVARY: Not visualized due to overshadowing bowel gas in the right adnexal region. LEFT OVARY: Normal, The left ovary measures 2.3 x 1.2 x 2.0 cm. Normal color and spectral Doppler evaluation of the left ovary.. FREE FLUID: No free fluid. IMPRESSION: No evidence of intraparenchymal or extrauterine , although right ovary and adnexal region we re not visualized due to overshadowing bowel gas.
== END 2024-09-08 07:24 | disposition home or self-care (01) ==
LOC: ER 05:21
DX: O20.0 Threatened abortion (principal); Z3A.01 Less than 8 weeks gestation of pregnancy
CPT/HCPCS: 36415; 76817; 80053; 81001; 81025; 83690; 84702; 85025; 86900; 86901; 99284; J7030